=== PATIENT | male | born 1960 | race Caucasian/White ===

== ENCOUNTER 2016-12-27 09:24 | Inpatient (IN) | payer OTHER ==
[2016-11-30 09:51] VITALS: BMI 28.0
--- NOTE | 2016-11-30 10:22 | PAT Medication Instructions ---
Service Date Nov 30, 2016. Current Home Medication List Alprazolam (Xanax), 1 MG PO Q6H PRN for Anxiety/Agitation Amlodipine (Norvasc), 5 MG PO QAM Aripiprazole (Abilify *), 30 MG PO BID Ascorbic Acid (Vitamin C), 500 MG PO QAM Baclofen (Lioresal), 5 MG PO TID PRN for Muscle Spasms Divalproex Sodium (Divalproex Sodium ER), 500 MG PO QAM Divalproex Sodium Extended Rel (Depakote Extended Rel *), 1,000 MG PO HS Gabapentin (Neurontin), 800 MG PO 5XD Hydrocodone/Acetaminophen 5MG/325MG ([place] 5MG/325MG), 1 TABLET PO Q4-6H PRN for Pain Lisinopril/Hctz (Zestoretic 20MG/25MG), 1 TAB PO QAM Ranitidine Hcl (Zantac), 150 MG PO BID Zolpidem Tartrate (Ambien *), 10 MG PO HS Medication Instructions For Your Scheduled Surgery - Hold the following medications the morning of surgery: Ranitidine Hcl (Zantac), 150 MG PO BID Lisinopril/Hctz (Zestoretic 20MG/25MG), 1 TAB PO QAM Baclofen (Lioresal), 5 MG PO TID PRN for Muscle Spasms Ascorbic Acid (Vitamin C), 500 MG PO QAM - Take the following medications the morning of surgery with a sip of water: Gabapentin (Neurontin), 800 MG PO 5XD Divalproex Sodium (Divalproex Sodium ER), 500 MG PO QAM Alprazolam (Xanax), 1 MG PO Q6H PRN for Anxiety/Agitation Amlodipine (Norvasc), 5 MG PO QAM Aripiprazole (Abilify *), 30 MG PO BID Hydrocodone/Acetaminophen 5MG/325MG ([place] 5MG/325MG), 1 TABLET PO Q4-6H PRN for Pain (okay to take up to 4 hours prior to surgery if needed) - Take the following medications as scheduled the night before surgery: Zolpidem Tartrate (Ambien *), 10 MG PO HS Ranitidine Hcl (Zantac), 150 MG PO BID Gabapentin (Neurontin), 800 MG PO 5XD Divalproex Sodium Extended Rel (Depakote Extended Rel *), 1,000 MG PO HS Aripiprazole (Abilify *), 30 MG PO BID Alprazolam (Xanax), 1 MG PO Q6H PRN for Anxiety/Agitation Hydrocodone/Acetaminophen 5MG/325MG ([place] 5MG/325MG), 1 TABLET PO Q4-6H PRN for Pain If you have any questions please call us at [phone] (Valerie Gibbs PA-C) or [phone] or [phone]
[2016-11-30 10:53] LABS: URINE APPEARANCE CLEAR (CLEAR); URINE COLOR DK YELLOW; URINE EPITHELIAL CELL AUTO 0-5 /lpf (0-5); URINE NITRITE NEG (NEG); URINE PH 5.5 (4.5-7.5); URINE SPECIFIC GRAVITY 1.022 (1.000-1.030); UROBILINOGEN NEG (NEG)
[2016-11-30 11:16] LABS: MANUAL MICROSCOPIC REQUIRED? NO; REVIEW REQ? NO; URINE BILIRUBIN NEG (NEG)
--- NOTE | 2016-12-26 13:04 | HISTORY & PHYSICAL EXAMINATION ---
DATE OF ADMISSION: 12/27/2016 HISTORY OF PRESENT ILLNESS: The patient presents to our office with complaint of back pain down the right leg. He reports his right leg is weak and sometimes jalil on him. He is having a difficult time with ambulation. He has trialed pain management injections with Dr. Guerrero which were not long lasting. Denies bowel or bladder dysfunction. He reports walking exacerbates his symptoms as well as lying down. He is most comfortable in a seated position. He is not taking anything for pain control. PAST MEDICAL HISTORY: The patient's medical history is significant for hypertension, anxiety. PAST SURGICAL HISTORY: Significant for prior lumbar surgery. MEDICATIONS: None listed. ALLERGIES: None listed. FAMILY HISTORY: Noncontributory. REVIEW OF SYSTEMS: Significant for back and right leg pain. PHYSICAL EXAMINATION: VITAL SIGNS: 5 foot 11, 210 pounds. HEAD, EYES, EARS, NOSE, AND THROAT: Speech appropriate. CARDIOPULMONARY: No gross abnormalities. ABDOMEN: Soft, nontender. GENITOURINARY: Deferred. NEUROLOGIC: Cranial nerves II-XII grossly intact. MUSCULOSKELETAL: The patient moves slowly around the room favoring the right side. He has a positive tension sign on the right. Strength is intact bilateral lower extremities. ASSESSMENT: Significant facet hypertrophy and severe lateral recess stenosis and foraminal stenosis of L2-3, evidence of prior decompression and fusion L3-S1. PLAN: At this point in time, he has failed conservative therapy and may consider surgical intervention. This would require lumbar decompression with instrumented fusion of L2-L3, removal of hardware L3-4. We may have to continue fusion down to the L2 through 4 levels. Risks, benefits, pros and alternatives were outlined in detail. He elected to proceed with the above-mentioned surgical intervention.
[~2016-12-27] VITALS: Ht 180.3 cm; Wt 93.9 kg
--- NOTE | 2016-12-27 07:31 | History & Physical Bridge Note ---
H&P Re-Evaluation Bridge Note: I have examined the patient, reviewed the History & Physical and in the interval since the performance of the History & Physical I have noted the following changes of clinical significance: No changes noted
[~2016-12-27 09:24] MED LIST: ABL15 PO; ALPR1TAB3 PO; AMB10 PO; AMLO-110 PO; ASCO1CAP3 PO; BACL10TA PO; CEFAZOLIN 2000 MG/60 ML D5W IV SCH; DPKSR500 PO; GABA800T PO; HYDR-5688 PO; LACTATED RINGER'S 1000ML 1,000 ML IV SCH; LISI-788 PO; RANI150T3 PO
[2016-12-27 09:50] VITALS: BP_SYST 156; BP_SYST 162; BP_DIAS 105; BP_DIAS 113; PULSE 101; TEMP 36.5; O2SAT 99; Ht 180.3 cm; Wt 93.9 kg
[2016-12-27] MEDS ORDERED: HYDROmorphone INJ 2 MG/ML SYR/VIAL ONE (11:32)
[2016-12-27] MEDS ORDERED: MIDAZOLAM HCL 1 MG/ML 2ML VIAL ONE (11:32)
[2016-12-27] MEDS ORDERED: FENTANYL CITRATE INJ 50 MCG/1 ML 2 ML VIAL ONE (11:32)
[2016-12-27] MEDS ORDERED: LACTATED RINGER'S 1000ML 1,000 ML IV PRN (12:15)
[2016-12-27] MEDS ORDERED: ONDANSETRON INJ 2 MG/ML 2 ML VIAL IV PRN ×2 (12:15→15:30)
[2016-12-27] MEDS ORDERED: BUPIVACAINE/EPINEPHRINE 0.5% MPF 1:200,000 30 ML VIAL ONE (13:17)
[2016-12-27] MEDS ORDERED: BACITRACIN 50000 UNIT VIAL ONE (13:17)
[2016-12-27] MEDS ORDERED: SODIUM CHLORIDE 0.9% PF 50 ML VIAL ONE (13:17)
[2016-12-27] MEDS ORDERED: DEXAMETHASONE SOD INJ 4 MG/ML VIAL ONE (13:55)
[2016-12-27] MEDS ORDERED: LABETALOL HCL IV 5 MG/ML 20ML ONE ×2 (13:55→16:35)
[2016-12-27] MEDS ORDERED: NEOSTIGMINE METHYLSULFATE 1 MG/ML 10ML VIAL ONE (13:55)
[2016-12-27] MEDS ORDERED: GLYCOPYRROLATE INJ 0.2 MG/ML VIAL ONE (13:55)
[2016-12-27] MEDS ORDERED: ONDANSETRON INJ 2 MG/ML 2 ML VIAL ONE (13:55)
[2016-12-27] MEDS ORDERED: LIDOCAINE HCL 2% 2 ML VIAL (20MG/ML) ONE (13:55)
[2016-12-27] MEDS ORDERED: LARYING-O-JET KIT (LTA) EXT ONE ×2 (13:55)
[2016-12-27] MEDS ORDERED: ROCURONIUM BROMIDE 10 MG/ML 5 ML VIAL ONE ×2 (13:55→14:06)
[2016-12-27] MEDS ORDERED: PROPOFOL IV EMULSION 10 MG/ML 20 ML VIAL IV ONE (13:55)
[2016-12-27] MEDS ORDERED: SODIUM CHLORIDE 0.9% 1000ML 1,000 ML IV SCH (15:17)
--- NOTE | 2016-12-27 15:17 | [facility] Post Operative Brief Note ---
Immediate Operative Summary Operative Date Dec 27, 2016. Pre-Operative Diagnosis Significant facet hypertrophy and severe lateral recess stenosis and foraminal stenosis of L2-3, evidence of prior decompression and fusion L3-S1. Post-Operative Diagnosis Significant facet hypertrophy and severe lateral recess stenosis and foraminal stenosis of L2-3, evidence of prior decompression and fusion L3-S1. Procedure(s) Performed tlif Surgeon Dr. Harjinder Duran Selector Packer Surgeon(s) Kristan Dalton PA-C Estimated Blood Loss 500 Findings stenosis Specimens Specimen A. Explanted lumbar hardware
[2016-12-27] MEDS ORDERED: FLOSEAL HEMOSTATIC MATRIX 10ML TOP ONE (15:18)
[2016-12-27] MEDS ORDERED: DO NOT ADMINISTER PNEUMOCOCCAL VACCINE PRN ×2 (15:30)
[2016-12-27] MEDS ORDERED: ALUMINUM/MAGNESIUM SUSP 30 ML UDC PO PRN (15:30)
[2016-12-27] MEDS ORDERED: METOCLOPRAMIDE HCL INJ 5 MG/ML 2 ML VIAL IV PRN (15:30)
[2016-12-27] MEDS ORDERED: ACETAMINOPHEN IV 100 ML IV PRN (15:30)
[2016-12-27] MEDS ORDERED: hydrOXYzine HCL 25 MG TAB PO PRN (15:30)
[2016-12-27] MEDS ORDERED: ACETAMINOPHEN 500 MG TAB PO PRN (15:30)
[2016-12-27] MEDS ORDERED: PROMETHAZINE HCL INJ 12.5 MG in SODIUM CHLORIDE 0.9% 50ML 50 ML IV PRN (15:30)
[2016-12-27] MEDS ORDERED: MAGNESIUM HYDROXIDE SUSP 30 ML UDC PO PRN (15:30)
[2016-12-27] MEDS ORDERED: LORAZEPAM 0.5 MG TAB PO PRN (15:30)
[2016-12-27] MEDS ORDERED: NALOXONE HCL 0.4 MG/1 ML VIAL/CARP IV PRN ×2 (15:30)
[2016-12-27] MEDS ORDERED: LORAZEPAM INJ 0.5 MG in SYRINGE 0 ML IV PRN (15:30)
[2016-12-27] MEDS ORDERED: BISACODYL 10 MG SUPP PR PRN (15:30)
[2016-12-27] MEDS ORDERED: SOD PHOSPHATE/SOD BIPHOSPHATE ENEMA 132 ML BTL PR PRN (15:30)
[2016-12-27] MEDS ORDERED: DO NOT ADMINISTER FLU VACCINE PRN ×3 (15:30)
--- NOTE | 2016-12-27 15:39 | OPERATIVE REPORT ---
DATE OF OPERATION: 12/27/2016 PREOPERATIVE DIAGNOSES: Spinal stenosis and spondylolisthesis, L2-L3. POSTOPERATIVE DIAGNOSES: Same. PROCEDURES PERFORMED: 1. Removal of posterior instrumentation, L3-L4. 2. Exploration of fusion, L3-L4. 3. Lumbar decompression, medial facetectomies, and foraminotomies, L1-L2 and L2-L3. 4. Posterior spinal fusion, L2-L3. 5. Placement of posterior instrumentation using Orthros rods and screws, L2-L3. 6. Interbody fusion, L2-L3. 7. Placement of PEEK cage 12 x 26 mm at L2-L3. 8. Placement of locally harvested morselized autograft in the posterior gutters. 9. Placement of Infuse collagen sponge combined with Mastergraft in the posterior lateral gutters and Minerva bone grafting in the interbody space. SURGEON: Dr. Harjinder Duran. ROUGH RIB GRADER: Kristan Beasley PA-C. Due to the complex nature of the procedure, the entire surgery was performed with the hotel assistant manager of [employer] [place]. The assistant teaching professor, under direct supervision, was involved in the actual performance of all aspects of the surgical procedure including hemostasis, tissue retraction and incision, instrument management, patient positioning, and wound closure. ANESTHESIA: General. DISPOSITION: The patient awakened and taken to PACU in stable condition. HISTORY OF PATIENT'S PROBLEMS: This is a 56-year-old male who presents with above-mentioned diagnoses. After failing an extensive course of nonoperative care, he elected to undergo the above-mentioned procedure. Risks, benefits, pros, cons, and alternatives were outlined in detail preoperatively. DESCRIPTION OF PROCEDURE: The patient was met with preoperatively, case discussed and all questions were addressed. At that point, the patient was taken back to operative suite and after undergoing successful general intubation by the department of anesthesia, he was placed in prone position on Rian table atop Donald frame. All bony prominences were well padded and the eyes were inspected to ensure there was no external pressure placed upon them. At this point, the lumbar spine was prepped and draped in the normal sterile fashion. Sharp dissection with the assistance of Bovie cautery performed down to and exposing the lamina and transverse processes of L2, L3, and instrumentation at L3-L4 level bilaterally. I then proceeded with hardware bilaterally at L3 and L4, exploring the fusion mass noting it to be intact. I then performed a complete laminectomy of L2, partial laminectomy of L1 addressing severe lateral recess and foraminal stenosis. Pedicle screws were then placed in L2-L3 bilaterally with assistance of fluoroscopy and the appropriately sized waleska provisionally placed. Through a transforaminal approach on the left, a complete diskectomy of L2-L3 was performed, endplates curetted to subcortical bleeding bone and a 12 x 26 mm PEEK cage filled with Minerva bone grafting tapped into position. The rods were then locked into final position bilaterally and transverse processes of L2-L3 burred to subcortical bleeding bone. Infuse collagen sponge combined with Mastergraft and locally harvested morselized autograft was placed in the posterior gutters. A 7 flat ELA drain was inserted. Incision was closed with 1-0 Vicryl in the fascia, 2-0 Vicryl subcutaneously, and 4-0 Monocryl for final skin closure. Steri-Strips and sterile dressing were placed. The patient was awakened and taken to PACU in stable condition. I attest to the content of the Intraoperative Record and any orders documented therein. Any exceptio ns are noted below.
--- NOTE | 2016-12-27 15:44 | DIAGNOSTIC IMAGING REPORT ---
Lumbar spine LUMBAR SPINE 2 OR 3 VIEW CLINICAL HISTORY: L3-4 REMOVE HARDWARE/L2-4 DECOMPRESSION/FUSION/INTERBODY TECHNIQUE: Image intensifier COMPARISON STUDY: None FINDINGS: Image intensifier thyroid is used for lumbar laminectomy and fusion-type changes. This includes hardware removal. IMPRESSION: Image intensifier usage for lumbar laminectomy, fusion, and hardware removal. Electronically signed by: Cameron Rodrigues M.D. 12/27/2016 3:42 PM Dictated Date/Time: 12/27/2016 3:42 PM
[2016-12-27] MEDS: FENTANYL CITRATE INJ 50 MCG/1 ML 2 ML VIAL IV PRN ×2 (15:50→15:55)
[2016-12-27] MEDS: HYDROmorphone HCL 0.5MG/ML 50 ML CASSETTE IV PRN ×3 (15:58→22:52)
[2016-12-27] MEDS: MoRPHine SULFATE 10 MG/ML CARP/VIAL IV PRN ×5 (16:04→16:20)
[2016-12-27] MEDS ORDERED: LABETALOL HCL IV 5 MG/ML 20ML IV STA (17:03)
--- NOTE | 2016-12-27 17:06 | Anesthesiology Progress Note ---
Anesthesia Post Op Note Date & Time Dec 27, 2016 at 17:07 Vital Signs Pain Intensity: 4 Vital Signs Past 12 Hours Date Time Temp Pulse Resp B/P Pulse Ox O2 Delivery O2 Flow Rate FiO2 12/27/16 16:58 134/97 12/27/16 16:58 36.7 69 18 134/97 98 Nasal Cannula 4 12/27/16 16:55 69 17 137/93 98 12/27/16 16:55 68 17 12/27/16 16:53 137/100 12/27/16 16:50 64 13 95 12/27/16 16:50 65 13 12/27/16 16:49 70 21 12/27/16 16:49 69 21 97 12/27/16 16:48 138/94 12/27/16 16:44 72 12 12/27/16 16:44 72 12 98 12/27/16 16:43 126/98 12/27/16 16:42 133/93 12/27/16 16:39 72 18 98 12/27/16 16:39 71 18 12/27/16 16:38 138/93 12/27/16 16:34 71 20 95 12/27/16 16:34 72 20 12/27/16 16:33 138/101 12/27/16 16:29 70 18 12/27/16 16:29 71 18 98 12/27/16 16:28 156/101 12/27/16 16:24 72 20 99 12/27/16 16:24 74 20 12/27/16 16:23 141/92 12/27/16 16:19 74 7 12/27/16 16:19 74 7 98 12/27/16 16:18 148/102 12/27/16 16:14 75 15 98 12/27/16 16:14 75 15 12/27/16 16:13 140/99 12/27/16 16:12 72 16 98 12/27/16 16:12 73 16 12/27/16 16:08 147/100 12/27/16 16:07 74 20 12/27/16 16:07 73 20 99 12/27/16 16:03 149/103 12/27/16 16:02 74 17 100 12/27/16 16:02 75 17 12/27/16 15:58 136/103 12/27/16 15:57 73 9 99 12/27/16 15:57 74 9 12/27/16 15:53 147/103 12/27/16 15:52 76 20 12/27/16 15:52 76 20 100 12/27/16 15:48 151/113 12/27/16 15:47 74 17 100 12/27/16 15:47 75 17 12/27/16 15:46 159/109 12/27/16 15:42 36.6 75 16 159/109 100 Mask 10 12/27/16 09:50 36.5 101 20 162/105 99 Room Air 156/113 Notes Mental Status: alert / awake / arousable, participated in evaluation Pt Amnestic to Procedure: Yes Nausea / Vomiting: adequately controlled Pain: adequately controlled Airway Patency, RR, SpO2: stable & adequate BP & HR: stable & adequate Hydration State: stable & adequate Anesthetic Complications: no major complications apparent
[2016-12-27 18:02] VITALS: BP 123/82; PULSE 63; TEMP 36.5; O2SAT 100
[2016-12-27 18:30] VITALS: BP 119/80; PULSE 74; TEMP 36.3; O2SAT 97
[2016-12-27] MEDS: LACTATED RINGER'S 1000ML 1,000 ML IV SCH (18:53)
[2016-12-27 19:30] VITALS: BP 118/78; PULSE 61; TEMP 36.6; O2SAT 98
[2016-12-27] MEDS: GABAPENTIN 800 MG TAB PO SCH (19:55)
[2016-12-27 20:30] VITALS: BP 129/86; PULSE 72; TEMP 36.4; O2SAT 99
[2016-12-27] MEDS ORDERED: INFLUENZA ADMINISTRATION CHARGE ONE (21:15)
[2016-12-27] MEDS ORDERED: INFLUENZA VIRUS QUAD VACCINE 0.5 ML SYR IM. ONE (21:15)
[2016-12-27] MEDS: RANITIDINE HCL 150 MG TAB PO SCH (21:19)
[2016-12-27] MEDS: ZOLPIDEM TARTRATE 10 MG TAB PO SCH (21:19)
[2016-12-27] MEDS: DOCUSATE SODIUM/SENNA 50/8.6MG TAB PO SCH (21:19)
[2016-12-27] MEDS: DIVALPROEX 500 MG EXTENDED RELEASE TAB PO SCH (21:20)
[2016-12-27] MEDS: ARIPIprazole TAB 15 MG TAB PO SCH (21:20)
[2016-12-27] MEDS: DEXAMETHASONE INJ 6 MG in SYRINGE 0 ML IV SCH (21:39)
[2016-12-27] MEDS: CEFAZOLIN IV 2,000 MG in DEXTROSE 5% 50ML 50 ML IV SCH (21:48)
[2016-12-27 23:35] VITALS: BP 116/76; PULSE 68; TEMP 36.4; O2SAT 95
[2016-12-28] MEDS: LACTATED RINGER'S 1000ML 1,000 ML IV SCH ×2 (00:04→06:21)
[2016-12-28 03:57] VITALS: BP 125/86; PULSE 83; TEMP 36.5; O2SAT 95
[2016-12-28] MEDS ORDERED: DC PCA ONE (06:00)
[2016-12-28] MEDS ORDERED: HYDROmorphone INJ 1 MG/ML SYR IV PRN (06:00)
[2016-12-28 06:14] LABS: BASO % 0.1 %; BASO ABS # 0.01 K/uL (0-0.2); COMPLETE YES; HEMATOCRIT 39.9 % (42-52); IG% 0.4 %; LYMPH % 6.6 %; LYMPH ABS # 0.89 K/uL (1.2-3.4); MEAN CELL VOLUME 97.6 fL (80-100); MEAN CORPUSCULAR HEMOGLOBIN 33.7 pg (25-34); MEAN CORPUSCULAR HGB CONC 34.6 g/dl (32-36); MONO % 8.2 %; NEUT % 84.7 %; PLATELET COUNT 197 K/uL (130-400); RED BLOOD COUNT 4.09 M/uL (4.7-6.1); WHITE BLOOD COUNT 13.43 K/uL (4.8-10.8)
[2016-12-28] MEDS: DEXAMETHASONE INJ 6 MG in SYRINGE 0 ML IV SCH ×2 (06:20→12:59)
[2016-12-28] MEDS: CEFAZOLIN IV 2,000 MG in DEXTROSE 5% 50ML 50 ML IV SCH (06:20)
[2016-12-28] MEDS: GABAPENTIN 800 MG TAB PO SCH ×5 (06:21→18:41)
[2016-12-28 06:39] LABS: CALCIUM 8.7 mg/dl (8.5-10.1); CREATININE 0.99 mg/dl (0.60-1.40); POTASSIUM 4.4 mmol/L (3.5-5.1)
[2016-12-28 07:05] VITALS: BP 123/89; PULSE 91; TEMP 36.6; O2SAT 94
[2016-12-28] MEDS ORDERED: RXC5 PO (08:34)
--- NOTE | 2016-12-28 08:35 | Discharge Instructions ---
Discharge Instructions Admission Reason for Admission: Lumbar Spinal Stenosis Discharge Discharge Diagnosis / Problem: stenosis Discharge Goals Goal(s): Improve function Activity Recommendations Activity Limitations: per Instructions/Follow-up section . Instructions / Follow-Up Instructions / Follow-Up ACTIVITY RECOMMENDATIONS: SELF CARE INSTRUCTIONS AFTER CERVICAL FUSIONS 1. No smoking. Smoking drastically decreases the chance of a solid fusion. 2. No bending, lifting more than 5 pounds, or twisting (roll like a log when turning in bed). 3. You may shower 3 days after surgery. Thoroughly dry wound. Do not soak in the tub. 4. Cervical collar: Must be worn at all times including sleeping. You may remove the brace only to bath, eat and if you are sitting in a recliner. 5. Please walk as much as you can for exercise. Gradually increase the distance that you walk as your endurance increases. SPECIAL CARE INSTRUCTIONS: VERY IMPORTANT TO READ AND REVIEW A. Do not take any anti-inflammatory medications (i.e. Indocin, Advil, Aspirin, Naprosyn, Aleve, Motrin, etc.) as these may inhibit the chance of a solid fusion. Tylenol is okay to take. B. Your surgical incision has been closed with a cosmetic suture under the skin that will dissolve in about 6 weeks. In 14 days, you can use a pair of clean scissors and cut the suture that is left outside of the skin at the ends of your incision. C. Complications are uncommon, but please contact us if you have any signs or symptoms of: 1. wound infection (fever higher than 102.5 degrees F, redness, separation of wound, drainage, or increasing pain from the incision) 2. blood clots in legs (pain, swelling, redness and warmth in legs) 3. urinary tract infection (fever higher than 102.5 degrees, burning upon urination or increased frequency of urination) 4. nerve problems (inability to walk on your toes or heels, numbness, loss of bowel or bladder control) 5. any other symptoms that concern you. D. Please call the office at if you have any concerns or questions about your operation or recovery. MANAGING PAIN AFTER SPINAL SURGERY 1. Narcotic medication is intended for short-term use and will be provided for surgical pain. Surgical pain usually lasts for a period of 4-6 weeks. Narcotic medication includes Percocet, Vicodin, Darvocet, Tylenol #3 or Lortab. 2. Longer-term pain is more appropriately treated with non-narcotic medication such as Tylenol ES. 3. Muscle spasm is not appropriately treated with narcotics. Muscle relaxers such as Soma, Flexeril or Skelaxin can be used along with Tylenol ES. 4. Remember that we all live with some "aches and pains". This is not unusual or uncommon after an injury or as we get older. 5. We will provide appropriate medication within the normal guidelines of their prescribed use. We will also be very cautious and aware of potential abuse and extended duration of patients' medication needs. 6. Please allow 2-3 days to process refills. Prescriptions will not be mailed but must be picked up at the office. FOLLOW UP VISIT: Keep your scheduled follow-up appointment. Any questions, please call the office at . Current Hospital Diet Patient's current hospital diet: Regular Diet Discharge Diet Recommended Diet: Regular Diet Procedures Procedures Performed: L2-L3 Lumbar laminectomy, decompression, pedicle screw fixation, placement of interbody device at L2-L3, allograft, bone morphenogenetic protein, hardware removal L3-L4 Pending Studies Studies pending at discharge: no Medical Emergencies . Who to Call and When: Medical Emergencies: If at any time you feel your situation is an emergency, please call 911 immediately. . Non-Emergent Contact Non-Emergency issues call your: Primary Care Provider . "Provider Documentation" section prepared by Harjinder Duran. VTE Core Measure Inpt VTE Proph given/why not?: Kunal Brown, SCD's
[2016-12-28] MEDS: LISINOPRIL/HCTZ 20/25MG TAB PO SCH (08:42)
[2016-12-28] MEDS: OXYCODONE HCL IR 5 MG TAB (IMMEDIATE RELEASE) PO PRN ×4 (08:42→21:46)
[2016-12-28] MEDS: ARIPIprazole TAB 15 MG TAB PO SCH ×2 (08:42→21:20)
[2016-12-28] MEDS: RANITIDINE HCL 150 MG TAB PO SCH ×2 (08:42→21:21)
[2016-12-28] MEDS: DIVALPROEX 500 MG EXTENDED RELEASE TAB PO SCH ×2 (08:43→21:20)
[2016-12-28] MEDS: AMLODIPINE BESYLATE 5 MG TAB PO SCH (08:43)
--- NOTE | 2016-12-28 08:48 | PROGRESS NOTE ---
DATE: 12/28/2016 Postop day 1. Back pain controlled. Leg pain markedly improved. Vital signs stable. T-max 36.6. ELA drained 70 mL. Hematocrit 39.9. PHYSICAL EXAMINATION: The patient is in chair at bedside. Has good strength to testing. Appears comfortable. ASSESSMENT: Status post lumbar decompression and fusion. PLAN: At this time, will initiate physical therapy, advance his bowel regimen and anticipate home Sunday.
[2016-12-28 11:05] VITALS: BP 106/72; PULSE 72; TEMP 36.7; O2SAT 94
[2016-12-28] MEDS ORDERED: NURSING VERBAL MED ORDER ONE (13:00)
[2016-12-28 14:52] VITALS: BP 97/64; PULSE 78; TEMP 36.9; O2SAT 95
[2016-12-28] MEDS: ALPRAZOLAM 0.5 MG TAB PO PRN (15:26)
[2016-12-28] MEDS: ZOLPIDEM TARTRATE 10 MG TAB PO SCH (21:19)
[2016-12-28] MEDS: DOCUSATE SODIUM/SENNA 50/8.6MG TAB PO SCH (21:21)
[2016-12-28 23:23] VITALS: BP 91/61; PULSE 61; TEMP 37; O2SAT 95
[2016-12-29] MEDS: POLYETHYLENE (MIRALAX) 17 GM PACK PO SCH ×2 (06:26→12:54)
[2016-12-29] MEDS: ALPRAZOLAM 0.5 MG TAB PO PRN (06:27)
[2016-12-29] MEDS: OXYCODONE HCL IR 5 MG TAB (IMMEDIATE RELEASE) PO PRN ×2 (06:27→14:14)
[2016-12-29] MEDS: GABAPENTIN 800 MG TAB PO SCH ×4 (06:36→16:21)
[2016-12-29 06:43] VITALS: BP 102/57; PULSE 69; TEMP 36.5; O2SAT 98
[2016-12-29] MEDS: AMLODIPINE BESYLATE 5 MG TAB PO SCH (08:56)
[2016-12-29] MEDS: DIVALPROEX 500 MG EXTENDED RELEASE TAB PO SCH (08:56)
[2016-12-29] MEDS: RANITIDINE HCL 150 MG TAB PO SCH (08:56)
[2016-12-29] MEDS: ARIPIprazole TAB 15 MG TAB PO SCH (08:56)
[2016-12-29] MEDS: LISINOPRIL/HCTZ 20/25MG TAB PO SCH (08:56)
[2016-12-29 09:08] VITALS: O2SAT 97
[2016-12-29 09:15] VITALS: BP 110/55; PULSE 70; TEMP 36.4; O2SAT 97
--- NOTE | 2016-12-29 10:49 | DISCHARGE SUMMARY ---
PRINCIPAL DIAGNOSIS: Spinal stenosis. HOSPITAL COURSE FOLLOWS: On December 27 the patient underwent lumbar decompression and fusion, tolerated this well and taken to the orthopedic floor postoperatively. Postop day #1, he was up and ambulatory, progressed to postop day #2. Progressing appropriately, ELA drain decreasing well. Subsequently discharged home. Discharge orders and instructions found on the chart for further review.
[2016-12-29 11:59] VITALS: BP 115/60; PULSE 73; TEMP 36.4; O2SAT 99
[2016-12-29 14:52] VITALS: BP 99/62; PULSE 71; TEMP 36.4; O2SAT 98
[2016-12-29 15:18] VITALS: BP 99/62; PULSE 71; TEMP 36.4; O2SAT 98
[2017-07-12] MEDS ORDERED: ONDA8TAB6 PO (10:32)
[2017-07-12] MEDS ORDERED: MELO7.5T5 PO (10:32)
[2017-07-12] MEDS ORDERED: ACET-1256 PO (10:32)
[2017-07-12] MEDS ORDERED: GABA1CAP5 PO (10:32)
[2017-07-12] MEDS ORDERED: CYM/30 PO (10:32)
[2017-07-12] MEDS ORDERED: CYCL10TA6 PO (10:32)
[2017-07-12] MEDS ORDERED: CELE100C PO (10:32)
[2017-07-12] MEDS ORDERED: NRN600 PO (10:32)
== END 2016-12-29 17:30 | disposition home health service (06) | DRG 460 ==
LOC: ENRESERVTM → ENRESERVDT → C.ACU 09:24 → C.3E 12:50
PROVIDERS: ADMIT Orthopaedic Surgery Orthopaedic Surgery of the Spine; ATTEND Orthopaedic Surgery Orthopaedic Surgery of the Spine
PROC: 0SG00AJ Fusion of Lumbar Vertebral Joint with Interbody Fusion Device, Posterior Approach, Anterior Column, Open Approach (ICD-10-PCS; principal; 2016-12-27 12:00)
PROC: 0SP004Z Removal of Internal Fixation Device from Lumbar Vertebral Joint, Open Approach (ICD-10-PCS; principal; 2016-12-27 12:00)
PROC: 01NB0ZZ Release Lumbar Nerve, Open Approach (ICD-10-PCS; principal; 2016-12-27 12:00)
PROC: 0ST20ZZ Resection of Lumbar Vertebral Disc, Open Approach (ICD-10-PCS; principal; 2016-12-27 12:00)
PROC: 3E0U0GB Introduction of Recombinant Bone Morphogenetic Protein into Joints, Open Approach (ICD-10-PCS; principal; 2016-12-27 12:00)
PROC: 0SG0071 Fusion of Lumbar Vertebral Joint with Autologous Tissue Substitute, Posterior Approach, Posterior Column, Open Approach (ICD-10-PCS; principal; 2016-12-27 12:00)
DX: M48.06 Spinal stenosis, lumbar region (principal); M43.16 Spondylolisthesis, lumbar region; M53.86 Other specified dorsopathies, lumbar region; I10 Essential (primary) hypertension; R56.9 Unspecified convulsions; K21.9 Gastro-esophageal reflux disease without esophagitis; G62.9 Polyneuropathy, unspecified; F41.9 Anxiety disorder, unspecified; F32.9 Major depressive disorder, single episode, unspecified; F43.10 Post-traumatic stress disorder, unspecified; Z98.1 Arthrodesis status; Z96.612 Presence of left artificial shoulder joint; Z86.19 Personal history of other infectious and parasitic diseases; Z79.891 Long term (current) use of opiate analgesic; Z79.899 Other long term (current) drug therapy

== ENCOUNTER 2017-01-01 19:43 | Inpatient (IN) | payer OTHER ==
[~2017-01-01] VITALS: Ht 180.3 cm; Wt 95.2 kg
[~2017-01-01 19:43] MED LIST changes: -BACL10TA PO; -CEFAZOLIN 2000 MG/60 ML D5W IV SCH; -LACTATED RINGER'S 1000ML 1,000 ML IV SCH; +RXC5 PO
[2017-01-01 21:25] VITALS: BP 150/99; PULSE 73; TEMP 36.9; Ht 180.3 cm; Wt 95.2 kg
[2017-01-01] MEDS ORDERED: NURSING VERBAL MED ORDER ONE (21:30)
[2017-01-01] MEDS ORDERED: NALOXONE HCL 0.4 MG/1 ML VIAL/CARP IV PRN (21:45)
[2017-01-01] MEDS: SODIUM CHLORIDE 0.9% 1000ML 1,000 ML IV SCH (21:45)
[2017-01-01] MEDS ORDERED: PROMETHAZINE HCL INJ 12.5 MG in SODIUM CHLORIDE 0.9% 50ML 50 ML IV PRN (22:00)
[2017-01-01] MEDS ORDERED: LACTATED RINGER'S 1000ML 1,000 ML IV SCH (22:00)
[2017-01-01] MEDS: HYDROmorphone HCL 0.5MG/ML 50 ML CASSETTE IV PRN (22:36)
[2017-01-01] MEDS: LACTATED RINGER'S 1000ML 1,000 ML IV SCH (23:35)
[2017-01-01 23:55] VITALS: BP 117/75; PULSE 71; TEMP 36.6; O2SAT 96
[2017-01-02 04:30] VITALS: BP 130/87; PULSE 63; TEMP 36.8; O2SAT 99
[2017-01-02] MEDS: HYDROmorphone HCL 0.5MG/ML 50 ML CASSETTE IV PRN ×4 (06:56→21:20)
[2017-01-02 07:23] VITALS: BP 159/98; PULSE 79; TEMP 36.6; O2SAT 99
[2017-01-02] MEDS ORDERED: ALPRAZOLAM 0.5 MG TAB PO PRN (08:30)
--- NOTE | 2017-01-02 08:58 | HISTORY & PHYSICAL EXAMINATION ---
DATE OF ADMISSION: 01/01/2017 HISTORY OF PRESENT ILLNESS: Mr. Phan is status post on 12/27/[address] Duran removal of instrumentation L3-4, lumbar decompression L1-2, L2-L3, instrumented fusion L2-L3. He presented to the [place] [facility] last evening secondary to increased back pain as well as leg pain. He was transferred from [facility] to [facility] as a direct admit for possible surgical intervention. The patient states at home he has been taking oxycodone for pain control. He has been using the assistance of a walker when ambulatory. He notes increased back pain as well as leg pain. Denies bowel or bladder changes. Denies fevers or chills. PAST MEDICAL HISTORY: The patient's medical history is significant for anemia, anxiety, elevated liver enzymes, hypertension, neuropathy, seizures and substance abuse. PAST SURGICAL HISTORY: Significant for ankle surgery, back surgery, total shoulder replacement. MEDICATIONS AT HOME: Include oxycodone 5 mg p.r.n., Neurontin 600 mg 4 times a day, Neurontin 800 mg 5 times a day, hydrocodone 5/325 q. 6 hours p.r.n., Zoloft 100 mg daily, lisinopril/hydrochlorothiazide 20/25 daily, baclofen 20 mg half a tablet t.i.d., Zantac 150 mg a day, Norvasc 5 mg a day, aripiprazole 30 mg half a tablet in the morning and half tablet before bedtime, sodium ER 500 mg 1 tab in the morning and 2 at bedtime, Xanax 1 mg twice a day as needed, vitamin C, Ambien 10 mg at bedtime p.r.n. ALLERGIES: None listed. SOCIAL HISTORY: He is single. Denies smoking, Alcohol use is social. Drug use is occasional. Employment is disability. PHYSICAL EXAMINATION: VITAL SIGNS: He is afebrile. Temp is 36.6 this morning. HEAD, EYES, EARS, NOSE, AND THROAT: Speech appropriate. CARDIOPULMONARY: No gross abnormalities. ABDOMEN: Soft, nontender. GENITOURINARY: Deferred. NEUROLOGIC: Cranial nerves II-XII grossly intact. MUSCULOSKELETAL: He is sitting on the edge of the bed in no obvious distress. His lumbar incision has significant ecchymosis as well as edema. No purulent drainage. His lower extremities he is neurovascularly intact. No ankle clonus. Calves are soft, nontender. ASSESSMENT: Postoperative hematoma versus seroma creating severe stenosis centrally L1 through L3. This is per MRI report from [place] last evening. PLAN: At this point in time, the patient is on IV DISTRICT ASSOCIATE JUDGE for pain control. Light activity today. DVT prophylaxis in the form of TEDs and SCDs. We will make him n.p.o. after midnight for possible I\T\D lumbar spine. ANDREAD
[2017-01-02] MEDS: LACTATED RINGER'S 1000ML 1,000 ML IV SCH ×2 (09:14→18:37)
[2017-01-02] MEDS: GABAPENTIN 800 MG TAB PO SCH ×3 (10:38→21:25)
[2017-01-02] MEDS: LISINOPRIL/HCTZ 20/25MG TAB PO SCH (10:38)
[2017-01-02] MEDS: ARIPIprazole TAB 15 MG TAB PO SCH ×2 (10:39→21:25)
[2017-01-02] MEDS: DIVALPROEX 500 MG EXTENDED RELEASE TAB PO SCH ×2 (10:39→21:24)
[2017-01-02] MEDS: RANITIDINE HCL 150 MG TAB PO SCH ×2 (10:39→21:24)
[2017-01-02] MEDS: AMLODIPINE BESYLATE 5 MG TAB PO SCH (10:39)
[2017-01-02 10:43] VITALS: BP 128/84; PULSE 65; TEMP 36.6; O2SAT 99
--- NOTE | 2017-01-02 14:45 | Anesthesiology Progress Note ---
Anesthesia Progress Note Date of Service Jan 02, 2017. Progress Notes Patient had surgery 6 days ago, no airway issues, history of hypertension, hepatitis C, seizures, anxiety, PTSD. Labs from 12/28/16 on eval. sheet. For I& D of hematoma/seroma of lumbar spine.
[2017-01-02 14:46] VITALS: BP 134/78; PULSE 72; TEMP 36.7; O2SAT 98
[2017-01-02] MEDS: SODIUM CHLORIDE 0.9% 1000ML 1,000 ML IV SCH (21:11)
[2017-01-02] MEDS: ZOLPIDEM TARTRATE 10 MG TAB PO SCH (21:24)
[2017-01-02 23:16] VITALS: BP 122/77; PULSE 86; TEMP 38.1; O2SAT 93
[2017-01-02 23:36] VITALS: TEMP 38
[2017-01-02] MEDS: ACETAMINOPHEN 500 MG TAB PO PRN (23:38)
[2017-01-03] VITALS (12 sets, daily range): BP systolic 100–122; BP diastolic 61–80; PULSE 65–81; TEMP 36.4–38.1; O2SAT 91–98
[2017-01-03] MEDS: LACTATED RINGER'S 1000ML 1,000 ML IV SCH ×2 (03:43→16:37)
[2017-01-03] MEDS: GABAPENTIN 800 MG TAB PO SCH ×3 (05:51→21:44)
[2017-01-03] MEDS: ACETAMINOPHEN 500 MG TAB PO PRN (05:51)
[2017-01-03] MEDS: HYDROmorphone HCL 0.5MG/ML 50 ML CASSETTE IV PRN ×5 (07:53→22:49)
[2017-01-03] MEDS: LISINOPRIL/HCTZ 20/25MG TAB PO SCH (09:00)
[2017-01-03] MEDS: ARIPIprazole TAB 15 MG TAB PO SCH ×2 (09:12→21:43)
[2017-01-03] MEDS: DIVALPROEX 500 MG EXTENDED RELEASE TAB PO SCH ×2 (09:13→21:44)
[2017-01-03] MEDS: AMLODIPINE BESYLATE 5 MG TAB PO SCH (09:13)
[2017-01-03] MEDS: RANITIDINE HCL 150 MG TAB PO SCH ×2 (09:13→21:43)
[2017-01-03] MEDS ORDERED: HYDROmorphone INJ 2 MG/ML SYR/VIAL ONE (12:12)
[2017-01-03] MEDS ORDERED: FENTANYL CITRATE INJ 50 MCG/1 ML 2 ML VIAL ONE (12:12)
[2017-01-03] MEDS ORDERED: MIDAZOLAM HCL 1 MG/ML 2ML VIAL ONE (12:12)
[2017-01-03] MEDS ORDERED: LACTATED RINGER'S 1000ML 1,000 ML IV PRN (12:30)
[2017-01-03] MEDS ORDERED: ONDANSETRON INJ 2 MG/ML 2 ML VIAL IV PRN ×2 (12:30→14:45)
[2017-01-03] MEDS ORDERED: HYDROmorphone INJ 1 MG/ML SYR IV PRN ×3 (12:30→14:45)
--- NOTE | 2017-01-03 12:56 | History & Physical Bridge Note ---
H&P Re-Evaluation Bridge Note: I have examined the patient, reviewed the History & Physical and in the interval since the performance of the History & Physical I have noted the following changes of clinical significance: No changes noted evacuation hematoma, decompression L1-2
[2017-01-03] MEDS ORDERED: NURSING VERBAL MED ORDER STA (13:12)
[2017-01-03] MEDS ORDERED: CEFAZOLIN IV 2,000 MG/60 ML D5W IV ONE (13:16)
[2017-01-03] MEDS ORDERED: BUPIVACAINE/EPINEPHRINE 0.5% MPF 1:200,000 30 ML VIAL ONE (13:30)
[2017-01-03] MEDS ORDERED: ACETAMINOPHEN 1000 MG/100 ML IV IV ONE (14:12)
[2017-01-03] MEDS ORDERED: GELATIN SPONGE SZ 100 ONE (14:30)
[2017-01-03] MEDS ORDERED: THROMBIN FOR SOLN 20000 UNIT KIT ONE (14:30)
[2017-01-03] MEDS ORDERED: THROMBIN 5,000 UNITS (RECOMBINANT) TOP ONE (14:36)
--- NOTE | 2017-01-03 14:43 | [facility] Operative Report ---
Operative Report Operative Date Jan 03, 2017. Pre-Operative Diagnosis Postoperative hematoma versus seroma creating severe stenosis centrally L1 through L3. Post-Operative Diagnosis same Procedure(s) Performed decomp Surgeon Dr. Harjinder Duran Ground Water Contractor Surgeon(s) Kristan Dalton PA-C Estimated Blood Loss 300mL Findings hematoma Specimens None per surgeon I attest to the content of the Intraoperative Record and any orders documented therein. Any exceptions are noted below.
[2017-01-03] MEDS ORDERED: DO NOT ADMINISTER PNEUMOCOCCAL VACCINE PRN ×2 (14:45)
[2017-01-03] MEDS ORDERED: LORAZEPAM INJ 1 MG in SYRINGE 0 ML IV PRN (14:45)
[2017-01-03] MEDS ORDERED: DO NOT ADMINISTER FLU VACCINE PRN ×3 (14:45)
[2017-01-03] MEDS ORDERED: OXYCODONE/ACETAMINOPHEN 5-325 TAB PO PRN (14:45)
[2017-01-03] MEDS ORDERED: MAGNESIUM HYDROXIDE SUSP 30 ML UDC PO PRN (14:45)
[2017-01-03] MEDS ORDERED: ACETAMINOPHEN 325 MG TAB PO PRN (14:45)
[2017-01-03] MEDS ORDERED: ACETAMINOPHEN 500 MG TAB PO PRN (14:45)
[2017-01-03] MEDS ORDERED: LORAZEPAM 1 MG TAB PO PRN (14:45)
[2017-01-03] MEDS ORDERED: ORM MISCELLANEOUS MED TOP ONE (15:04)
--- NOTE | 2017-01-03 15:10 | OPERATIVE REPORT ---
DATE OF OPERATION: 01/03/2017 PREOPERATIVE DIAGNOSIS: Epidural hematoma status post lumbar decompression and fusion. POSTOPERATIVE DIAGNOSIS: Same. PROCEDURE PERFORMED: 1. Lumbar decompression T12 and L1. 2. Evacuation of hematoma. SURGEON: Dr. Harjinder Duran. DRAFTER (CAD) ELECTRONIC: Kristan Beasley PA-C. Due to the complex nature of the procedure, the entire surgery was performed with the assistant store manager operations of Kristan Beasley PA-C. The health care assistant, under direct supervision, was involved in the actual performance of all aspects of the surgical procedure including hemostasis, tissue retraction and incision, instrument management, patient positioning, and wound closure. ANESTHESIA: General. DISPOSITION: The patient awakened and taken to PACU in stable condition. HISTORY OF PATIENT'S PROBLEMS: This is a 56-year-old old male who is well known to me that is approximately 2 weeks status post lumbar decompression and fusion. She presented to the Emergency Room in [place] yesterday with worsening back pain. MRI was obtained and they determined he had a large complex epidural fluid consistent with hematoma. Subsequently, we had him brought to [facility] for evaluation and elected to undergo decompression and evacuation of hematoma. Risks, benefits, pros, cons, and alternatives were outlined in detail. OPERATION AND FINDINGS: DESCRIPTION OF PROCEDURE: The patient was met with preoperatively, case discussed and all questions were addressed. At that point the patient was taken back to the operative suite and after undergoing successful general intubation by the department of anesthesia was placed in prone position on the Rian table atop Donald frame. All bony prominences were well padded and the eyes were inspected to ensure there was no external pressure placed upon them. At this point, lumbar spine was prepped and draped in normal sterile fashion. Sharp dissection with the assistance of Bovie cautery performed down to and exposing the previous decompressed site at L2-3. I did not bring the dissection caudally to T12 and L1 as based on MRI we could appreciate possible migration of the hematoma underneath the lamina of T12 and 1. Massive amounts of coagulated blood was identified and subsequently removed. This included several liters of antibiotic solution to help evacuate all blood products. The blood was in the epidural space and required midline laminectomy of L1 and T12 to adequately address all compression. We identified hematoma at both levels of significant proportions. We were able to remove all clot without difficulty. After this was complete two 7 flat ELA drains were inserted and incision was closed with 1-0 Vicryl in the fascia, 2-0 Vicryl subcutaneously and jordan for final skin closure. Steri-Strips and sterile dressing placed. The patient was awakened and taken to PACU in stable condition. I attest to the content of the Intraoperative Record and any orders documented therein. Any exceptio ns are noted below.
[2017-01-03] MEDS: FENTANYL CITRATE INJ 50 MCG/1 ML 2 ML VIAL IV PRN ×2 (15:37→15:42)
--- NOTE | 2017-01-03 15:58 | Anesthesiology Progress Note ---
Anesthesia Post Op Note Date & Time Jan 03, 2017 at 15:58 Vital Signs Pain Intensity: 6 Vital Signs Past 12 Hours Date Time Temp Pulse Resp B/P Pulse Ox O2 Delivery O2 Flow Rate FiO2 01/03/17 15:45 81 16 134/81 97 Nasal Cannula 4 01/03/17 15:35 76 16 131/83 100 Nasal Cannula 4 01/03/17 15:25 78 16 140/85 100 Mask 10 01/03/17 15:15 77 16 133/88 100 Mask 10 01/03/17 15:07 36.9 75 16 137/86 100 Mask 10 01/03/17 11:14 36.9 65 18 114/78 95 Room Air 01/03/17 09:11 74 117/78 01/03/17 08:15 Room Air 01/03/17 06:38 37.8 01/03/17 05:49 38.1 01/03/17 04:01 37.9 77 18 110/74 91 Room Air Notes Mental Status: alert / awake / arousable, participated in evaluation Pt Amnestic to Procedure: Yes Nausea / Vomiting: adequately controlled Pain: adequately controlled Airway Patency, RR, SpO2: stable & adequate BP & HR: stable & adequate Hydration State: stable & adequate Anesthetic Complications: no major complications apparent Pt doing well. Pain now tolerable.
[2017-01-03] MEDS ORDERED: EpHEDrine SULFATE 50MG/5ML SYR ONE (16:45)
[2017-01-03] MEDS ORDERED: LIDOCAINE HCL 2% 2 ML VIAL (20MG/ML) ONE (16:45)
[2017-01-03] MEDS ORDERED: GLYCOPYRROLATE INJ 0.2 MG/ML VIAL ONE (16:45)
[2017-01-03] MEDS ORDERED: NEOSTIGMINE METHYLSULFATE 1 MG/ML 10ML VIAL ONE (16:45)
[2017-01-03] MEDS ORDERED: PROPOFOL IV EMULSION 10 MG/ML 20 ML VIAL IV ONE (16:45)
[2017-01-03] MEDS ORDERED: ONDANSETRON INJ 2 MG/ML 2 ML VIAL ONE (16:45)
[2017-01-03] MEDS ORDERED: DEXAMETHASONE SOD INJ 4 MG/ML VIAL ONE (16:45)
[2017-01-03] MEDS ORDERED: ROCURONIUM BROMIDE 10 MG/ML 5 ML VIAL ONE (16:45)
[2017-01-03] MEDS: CEFAZOLIN IV 2,000 MG in DEXTROSE 5% 50ML 50 ML IV SCH (21:39)
[2017-01-03] MEDS: SODIUM CHLORIDE 0.9% 1000ML 1,000 ML IV SCH (21:39)
[2017-01-03] MEDS: ZOLPIDEM TARTRATE 10 MG TAB PO SCH (21:44)
[2017-01-03] MEDS: DOCUSATE SODIUM 100 MG CAP PO SCH (21:54)
[2017-01-04] VITALS (7 sets, daily range): BP systolic 100–129; BP diastolic 66–77; PULSE 61–86; TEMP 36.4–37; O2SAT 92–100
[2017-01-04] MEDS: LACTATED RINGER'S 1000ML 1,000 ML IV SCH (02:59)
[2017-01-04] MEDS: GABAPENTIN 800 MG TAB PO SCH ×3 (05:53→22:06)
[2017-01-04] MEDS: CEFAZOLIN IV 2,000 MG in DEXTROSE 5% 50ML 50 ML IV SCH ×2 (05:53→14:00)
[2017-01-04] MEDS: HYDROmorphone HCL 0.5MG/ML 50 ML CASSETTE IV PRN ×4 (06:56→23:17)
[2017-01-04 07:42] LABS: PARTIAL THROMBOPLASTIN RATIO 0.9
[2017-01-04] MEDS: RANITIDINE HCL 150 MG TAB PO SCH ×2 (08:47→20:47)
[2017-01-04] MEDS: AMLODIPINE BESYLATE 5 MG TAB PO SCH (08:47)
[2017-01-04] MEDS: DOCUSATE SODIUM 100 MG CAP PO SCH ×2 (08:48→20:46)
[2017-01-04] MEDS: ARIPIprazole TAB 15 MG TAB PO SCH ×2 (08:48→20:48)
[2017-01-04] MEDS: LISINOPRIL/HCTZ 20/25MG TAB PO SCH (08:48)
[2017-01-04] MEDS: DIVALPROEX 500 MG EXTENDED RELEASE TAB PO SCH ×2 (08:48→20:47)
[2017-01-04] MEDS ORDERED: OXYC-57 PO (10:58)
--- NOTE | 2017-01-04 10:59 | Discharge Instructions ---
Discharge Instructions Admission Reason for Admission: Compression Seroma Discharge Discharge Diagnosis / Problem: stenosis Discharge Goals Goal(s): Improve function Activity Recommendations Activity Limitations: per Instructions/Follow-up section . Instructions / Follow-Up Instructions / Follow-Up ACTIVITY RECOMMENDATIONS: SELF CARE INSTRUCTIONS AFTER THORACIC/LUMBAR FUSIONS 1. You may walk to your tolerance. It is good exercise for your legs and back. Expect some back and intermittent leg aches and pains. 2. You may perform "counter-top" level activities (make a sandwich, pierce with a project, etc.). 3. No bending or lifting of more than 10 pounds or back twisting of any nature (roll like a log when turning in bed). 4. You may ride in a car for 20-30 minutes at a time. No driving until after your first visit with your doctor. 5. Frequent changes of position and restricting sitting to 30 minutes at a time will help limit the amount of back spasms and stiffness you may experience. 6. You may discontinue the use of ambulatory aids (cane, crutches, etc.) once your strength and confidence allow. 7. You may mixing supervisor the shower and let water strike your incision when you arrive home at least once daily. Do not take a tub bath, sit in a hot tub or go into a swimming pool until after your first recheck in the office. SPECIAL CARE INSTRUCTIONS: VERY IMPORTANT TO READ AND REVIEW A. Your surgical incision has been closed with a cosmetic suture under the skin that will dissolve in about 6 weeks. In 14 days, you can use a pair of clean scissors and cut the suture that is left outside of the skin at the ends of your incision. 1. The small skin tapes can be removed 7 days after surgery if they have not fallen off by that point. 2. You may keep the wound open to air as much as possible to promote healing after post-op day number 5 unless told otherwise by your doctor. 3. If you think the wound looks like it is becoming infected (redness or worsening drainage) and/or you are experiencing fever, chill or worsening back pain and muscle spasms, contact the office so that we may evaluate you as soon as possible. B. Complications are uncommon, but please contact us if you have any signs or symptoms of: 1. wound infection (fever higher than 102.5 degrees F, redness, separation of wound, drainage, or increasing pain from the incision) 2. blood clots in legs (pain, swelling, redness and warmth in legs) 3. urinary tract infection (fever higher than 102.5 degrees F, burning upon urination or increased frequency of urination) 4. nerve problems (inability to walk on your toes or heels, numbness, loss of bowel or bladder control) 5. any other symptoms that concern you C. Please call the office at if you have any concerns or questions about your operation or recovery. D. No smoking! Smoking drastically decreases the chance of a solid fusion. E. Do not take any anti-inflammatory medications (Indocin, Advil, Motrin, Aspirin, Naprosyn, etc.) as these may inhibit the chance of a solid fusion. Tylenol is okay to take for pain. MANAGING PAIN AFTER SPINAL SURGERY 1. Narcotic medication is intended for short-term use and will be provided for surgical pain. Surgical pain usually lasts for a period of 4-6 weeks. Narcotic medication includes Percocet, Vicodin, Darvocet, Tylenol #3 or Lortab. 2. Longer-term pain is more appropriately treated with non-narcotic medication such as Tylenol ES. 3. Muscle spasm is not appropriately treated with narcotics. Muscle relaxers such as Soma, Flexeril or Skelaxin can be used along with Tylenol ES. 4. Remember that we all live with some "aches and pains". This is not unusual or uncommon after an injury or as we get older. a. Back pain is expected and may include muscle spasms for 4 to 6 weeks after surgery. The pain should gradually improve. If the pain worsens for no apparent reason, please contact the office. b. Intermittent leg pain may also be experienced and should not be concerned about unless it worsens for no apparent reason. If so, please contact the office. 5. We will provide appropriate medication within the normal guidelines of their prescribed use. We will also be very cautious and aware of potential abuse and extended duration of patients' medication needs. a. Pain medications are for your comfort and to assist with sleep and rest so that the tissue can heal. They are not provided in order to return to normal activity and should not be used through the day. To do so or worsening pain at night can result from ongoing tissue damage and development of tolerance to the prescribed medicine. 6. Please allow 2-3 days to process refills. Prescriptions will not be mailed but must be picked up at the office. FOLLOW UP VISIT: Keep your scheduled follow-up appointment. Any questions, please call the office at . Current Hospital Diet Patient's current hospital diet: Regular Diet Discharge Diet Recommended Diet: Regular Diet Procedures Procedures Performed: Evacuation of Hematoma L1-L2 Pending Studies Studies pending at discharge: no Medical Emergencies . Who to Call and When: Medical Emergencies: If at any time you feel your situation is an emergency, please call 911 immediately. . Non-Emergent Contact Non-Emergency issues call your: Primary Care Provider . "Provider Documentation" section prepared by Harjinder Duran. VTE Core Measure Inpt VTE Proph given/why not?: Kunal Brown, SCD's
--- NOTE | 2017-01-04 11:00 | PROGRESS NOTE ---
DATE: 01/04/2017 SUBJECTIVE: Postop day 1. Back pain controlled markedly improved. Leg pain improved. Vital signs stable. T-max 37.0. ELA drained 50s-60s mL respectively. OBJECTIVE: On exam, the patient is in chair at bedside. Has good strength to testing. Appears comfortable. ASSESSMENT: Status post incision and drainage lumbar spine and evacuation of hematoma. PLAN: At this time, will continue physical therapy and monitor ELA output. Hopefully, be able to discharge home this weekend.
--- NOTE | 2017-01-04 13:45 | Anesthesiology Progress Note ---
Anesthesia Post Op Note Date & Time Jan 04, 2017 at 13:44 Vital Signs Vital Signs Past 12 Hours Date Time Temp Pulse Resp B/P Pulse Ox O2 Delivery O2 Flow Rate FiO2 01/04/17 12:06 68 20 129/77 94 Room Air 01/04/17 07:09 36.4 74 16 118/70 96 Room Air 01/04/17 07:09 Room Air 01/04/17 03:17 36.9 86 16 113/72 94 Room Air Notes Mental Status: alert / awake / arousable, participated in evaluation Pt Amnestic to Procedure: Yes Nausea / Vomiting: adequately controlled Pain: adequately controlled Airway Patency, RR, SpO2: stable & adequate BP & HR: stable & adequate Hydration State: stable & adequate Anesthetic Complications: no major complications apparent
[2017-01-04] MEDS: SODIUM CHLORIDE 0.9% 1000ML 1,000 ML IV SCH (17:19)
[2017-01-04] MEDS: ZOLPIDEM TARTRATE 10 MG TAB PO SCH (20:49)
[2017-01-05] VITALS (9 sets, daily range): BP systolic 91–117; BP diastolic 54–74; PULSE 70–87; TEMP 36.6–37.8; O2SAT 92–96
[2017-01-05] MEDS: GABAPENTIN 800 MG TAB PO SCH ×4 (05:40→22:00)
[2017-01-05] MEDS ORDERED: BISACODYL 10 MG SUPP PR PRN (06:00)
[2017-01-05] MEDS ORDERED: BISACODYL 5 MG TABEC PO PRN (06:00)
[2017-01-05] MEDS: HYDROmorphone HCL 0.5MG/ML 50 ML CASSETTE IV PRN ×4 (06:51→23:03)
[2017-01-05] MEDS: ARIPIprazole TAB 15 MG TAB PO SCH ×2 (09:03→20:33)
[2017-01-05] MEDS: POLYETHYLENE (MIRALAX) 17 GM PACK PO SCH (09:04)
[2017-01-05] MEDS: DIVALPROEX 500 MG EXTENDED RELEASE TAB PO SCH ×2 (09:04→20:34)
[2017-01-05] MEDS: DOCUSATE SODIUM 100 MG CAP PO SCH ×2 (09:04→20:33)
[2017-01-05] MEDS: LISINOPRIL/HCTZ 20/25MG TAB PO SCH (09:05)
[2017-01-05] MEDS: RANITIDINE HCL 150 MG TAB PO SCH ×2 (09:05→20:33)
[2017-01-05] MEDS: AMLODIPINE BESYLATE 5 MG TAB PO SCH (09:05)
--- NOTE | 2017-01-05 16:47 | PROGRESS NOTE ---
DATE: 01/05/2017 SUBJECTIVE: Postop day #2. Back pain and leg pain markedly improved. Vital signs stable. T-max 36.9. ELA drained significant for 40 and 70 respectively. On exam, has good strength to testing. Appears comfortable. ASSESSMENT: Status post incision and drainage and evacuation of hematoma, extension of the decompression. PLAN: Overall, he is doing well, will continue with physical therapy throughout the weekend and anticipate home Sunday upon removal of the drains.
[2017-01-05] MEDS: ACETAMINOPHEN 500 MG TAB PO PRN (20:34)
[2017-01-05] MEDS: ZOLPIDEM TARTRATE 10 MG TAB PO SCH (20:34)
[2017-01-05] MEDS: SODIUM CHLORIDE 0.9% 1000ML 1,000 ML IV SCH (21:58)
[2017-01-06] VITALS (7 sets, daily range): BP systolic 92–114; BP diastolic 57–73; PULSE 71–86; TEMP 36.8–37.6; O2SAT 94–98
[2017-01-06] MEDS: GABAPENTIN 800 MG TAB PO SCH ×3 (05:51→20:54)
[2017-01-06] MEDS ORDERED: CEFAZOLIN IV 2,000 MG/60 ML D5W IV SCH (06:00)
[2017-01-06] MEDS: HYDROmorphone HCL 0.5MG/ML 50 ML CASSETTE IV PRN ×3 (06:58→22:46)
[2017-01-06] MEDS ORDERED: POLYETHYLENE (MIRALAX) 17 GM PACK PO SCH (09:00)
[2017-01-06] MEDS: DOCUSATE SODIUM 100 MG CAP PO SCH ×2 (09:13→20:54)
[2017-01-06] MEDS: ARIPIprazole TAB 15 MG TAB PO SCH ×2 (09:14→20:54)
[2017-01-06] MEDS: AMLODIPINE BESYLATE 5 MG TAB PO SCH (09:14)
[2017-01-06] MEDS: DIVALPROEX 500 MG EXTENDED RELEASE TAB PO SCH ×2 (09:14→20:54)
[2017-01-06] MEDS: LISINOPRIL/HCTZ 20/25MG TAB PO SCH (09:14)
[2017-01-06] MEDS: RANITIDINE HCL 150 MG TAB PO SCH ×2 (09:15→20:54)
[2017-01-06] MEDS: POLYETHYLENE (MIRALAX) 17 GM PACK PO SCH (09:15)
--- NOTE | 2017-01-06 10:12 | PROGRESS NOTE ---
DATE: 01/06/2017 DATE: 01/06/2017. SUBJECTIVE: Back pain is markedly improved. Leg pain improved, ambulating well. Vital signs stable. T-max 37.6. ELA drains decreasing appropriately. OBJECTIVE: On exam he is in chair at bedside. Has good strength to testing. ASSESSMENT: Status post incision and drainage, laminectomy of lumbar spine. PLAN: At this time, will maintain a ELA drain throughout the day today. Encourage ambulation as tolerated. Anticipate home tomorrow.
[2017-01-06] MEDS: ZOLPIDEM TARTRATE 10 MG TAB PO SCH (20:53)
[2017-01-06] MEDS: SODIUM CHLORIDE 0.9% 1000ML 1,000 ML IV SCH (21:31)
[2017-01-07 03:40] VITALS: BP 112/75; PULSE 74; TEMP 36.5; O2SAT 93
[2017-01-07] MEDS: GABAPENTIN 800 MG TAB PO SCH (05:51)
[2017-01-07] MEDS: HYDROmorphone HCL 0.5MG/ML 50 ML CASSETTE IV PRN (06:58)
[2017-01-07 07:33] VITALS: BP 92/60; PULSE 76; TEMP 36.6; O2SAT 96
[2017-01-07] MEDS: POLYETHYLENE (MIRALAX) 17 GM PACK PO SCH (08:29)
[2017-01-07] MEDS: RANITIDINE HCL 150 MG TAB PO SCH (08:29)
[2017-01-07] MEDS: DIVALPROEX 500 MG EXTENDED RELEASE TAB PO SCH (08:29)
[2017-01-07] MEDS: DOCUSATE SODIUM 100 MG CAP PO SCH (08:29)
[2017-01-07] MEDS: AMLODIPINE BESYLATE 5 MG TAB PO SCH (08:30)
[2017-01-07] MEDS: LISINOPRIL/HCTZ 20/25MG TAB PO SCH (08:30)
[2017-01-07] MEDS: ARIPIprazole TAB 15 MG TAB PO SCH (08:30)
[2017-01-07 12:05] VITALS: BP 92/60; PULSE 76; TEMP 36.6; O2SAT 96
--- NOTE | 2017-01-07 15:01 | DISCHARGE SUMMARY ---
PRINCIPAL DIAGNOSIS: Epidural hematoma. HOSPITAL COURSE FOLLOWS: On 01/01/2017, he was transferred to our hospital. He failed to respond with rest and medications and subsequently elected to undergo a decompression and evacuation of hematoma on 01/03/2017. This did require additional decompression of the L1 and T12 lamina secondary to extent of the hematoma. Postoperatively, this patient's symptoms improved dramatically. He was up and ambulatory, ELA drain was decreased appropriately, subsequently on January 07, he was discharged home. Discharge orders and instructions found on the chart for further review. MILAN
[2017-07-12] MEDS ORDERED: GABA1CAP5 PO (10:32)
[2017-07-12] MEDS ORDERED: ONDA8TAB6 PO (10:32)
[2017-07-12] MEDS ORDERED: NRN600 PO (10:32)
[2017-07-12] MEDS ORDERED: CYM/30 PO (10:32)
[2017-07-12] MEDS ORDERED: CYCL10TA6 PO (10:32)
[2017-07-12] MEDS ORDERED: ACET-1256 PO (10:32)
[2017-07-12] MEDS ORDERED: MELO7.5T5 PO (10:32)
[2017-07-12] MEDS ORDERED: CELE100C PO (10:32)
== END 2017-01-07 13:25 | disposition home or self-care (01) | DRG 909 ==
LOC: C.3E 21:14
PROVIDERS: ADMIT Orthopaedic Surgery Orthopaedic Surgery of the Spine; ATTEND Orthopaedic Surgery Orthopaedic Surgery of the Spine
PROC: 00C30ZZ Extirpation of Matter from Intracranial Epidural Space, Open Approach (ICD-10-PCS; principal; 2017-01-03 14:30)
DX: M96.840 Postprocedural hematoma of a musculoskeletal structure following a musculoskeletal system procedure (principal); Y83.8 Other surgical procedures as the cause of abnormal reaction of the patient, or of later complication, without mention of misadventure at the time of the procedure; I10 Essential (primary) hypertension; G40.909 Epilepsy, unspecified, not intractable, without status epilepticus; G62.9 Polyneuropathy, unspecified; F41.9 Anxiety disorder, unspecified; F43.10 Post-traumatic stress disorder, unspecified; Z79.891 Long term (current) use of opiate analgesic; Z79.899 Other long term (current) drug therapy

== ENCOUNTER 2017-07-27 07:17 | Inpatient (IN) | payer OTHER ==
[2017-07-12 10:03] VITALS: BMI 29.0
--- NOTE | 2017-07-12 10:54 | PAT Medication Instructions ---
Service Date Jul 12, 2017. Current Home Medication List Acetaminophen (Tylenol), 1 TAB PO Q8 PRN for Pain Alprazolam (Xanax), 1 MG PO Q6H PRN for Anxiety/Agitation Amlodipine (Norvasc), 5 MG PO QAM Aripiprazole (Abilify *), 15 MG PO BID Ascorbic Acid (Vitamin C), 500 MG PO QAM Celecoxib (Celebrex), 200 MG PO BIDM Cyclobenzaprine Hcl (Flexeril), 1 TAB PO QAM Divalproex Sodium (Divalproex Sodium ER), 500 MG PO QAM Divalproex Sodium Extended Rel (Depakote Extended Rel *), 1,000 MG PO HS Duloxetine HCl (Cymbalta), 1 CAP PO BID Gabapentin (Gabapentin), 1,200 MG PO HS Gabapentin (Neurontin), 400 MG PO TID Hydrocodone/Acetaminophen 5MG/325MG ([place] 5MG/325MG), 1 TABLET PO Q4-6H PRN for Pain Meloxicam (Mobic), 15 MG PO QAM Ondansetron Hcl (Zofran), 8 MG PO DAILY PRN for Nausea Ranitidine Hcl (Zantac), 150 MG PO BID Zolpidem Tartrate (Ambien *), 10 MG PO HS Medication Instructions For Your Scheduled Surgery - Hold the following medications the morning of surgery: Ascorbic Acid (Vitamin C), 500 MG PO QAM Celecoxib (Celebrex), 200 MG PO BIDM (otherwise okay to continue per surgeon) Meloxicam (Mobic), 15 MG PO QAM (otherwise okay to continue per surgeon) Cyclobenzaprine Hcl (Flexeril), 1 TAB PO QAM - Take the following medications the morning of surgery with a sip of water OTHERWISE NOTHING TO EAT OR DRINK AFTER MIDNIGHT: Acetaminophen (Tylenol), 1 TAB PO Q8 PRN for Pain Amlodipine (Norvasc), 5 MG PO QAM Alprazolam (Xanax), 1 MG PO Q6H PRN for Anxiety/Agitation Aripiprazole (Abilify *), 15 MG PO BID Divalproex Sodium (Divalproex Sodium ER), 500 MG PO QAM Gabapentin (Neurontin), 400 MG PO TID Duloxetine HCl (Cymbalta), 1 CAP PO BID Hydrocodone/Acetaminophen 5MG/325MG ([place] 5MG/325MG), 1 TABLET PO Q4-6H PRN for Pain (may take if needed up to 4 hours prior to surgery) Ondansetron Hcl (Zofran), 8 MG PO DAILY PRN for Nausea Ranitidine Hcl (Zantac), 150 MG PO BID - Take the following medications as scheduled the night before surgery: Acetaminophen (Tylenol), 1 TAB PO Q8 PRN for Pain Alprazolam (Xanax), 1 MG PO Q6H PRN for Anxiety/Agitation Aripiprazole (Abilify *), 15 MG PO BID Zolpidem Tartrate (Ambien *), 10 MG PO HS Celecoxib (Celebrex), 200 MG PO BIDM Divalproex Sodium Extended Rel (Depakote Extended Rel *), 1,000 MG PO HS Gabapentin (Neurontin), 400 MG PO TID Duloxetine HCl (Cymbalta), 1 CAP PO BID Gabapentin (Gabapentin), 1,200 MG PO HS Hydrocodone/Acetaminophen 5MG/325MG ([place] 5MG/325MG), 1 TABLET PO Q4-6H PRN for Pain Ondansetron Hcl (Zofran), 8 MG PO DAILY PRN for Nausea Ranitidine Hcl (Zantac), 150 MG PO BID If you have any questions please call us at [phone] or [phone] or [phone]
[2017-07-12 11:28] LABS: BASO % 0.4 %; BASO ABS # 0.02 K/uL (0-0.2); COMPLETE YES; EOS % 1.5 %; HEMATOCRIT 41.9 % (42-52); IG% 0.2 %; LYMPH % 37.8 %; MEAN CELL VOLUME 94.8 fL (80-100); MEAN CORPUSCULAR HEMOGLOBIN 32.1 pg (25-34); MEAN CORPUSCULAR HGB CONC 33.9 g/dl (32-36); MEAN PLATELET VOLUME 10.5 fL (7.4-10.4); NEUT % 48.1 %; PLATELET COUNT 182 K/uL (130-400); RED BLOOD COUNT 4.42 M/uL (4.7-6.1); WHITE BLOOD COUNT 4.76 K/uL (4.8-10.8)
[2017-07-12 11:31] LABS: URINE APPEARANCE CLEAR (CLEAR); URINE BILIRUBIN NEG (NEG); URINE COLOR DK YELLOW; URINE NITRITE NEG (NEG); URINE SPECIFIC GRAVITY 1.031 (1.000-1.030); UROBILINOGEN NEG (NEG); ZZUR CULT IF INDIC CLEAN CATCH NO
[2017-07-12 11:40] LABS: MANUAL MICROSCOPIC REQUIRED? NO; REVIEW REQ? NO
[2017-07-12 11:41] LABS: PROTHROMBIN TIME (PATIENT) 10.2 SECONDS (9.0-12.0)
[2017-07-12 12:04] LABS: ESTIMATED AVERAGE GLUCOSE 117 mg/dl; HA1C FLAG Normal (Normal)
--- NOTE | 2017-07-25 17:15 | History and Physical ---
History & Physical Date Jul 25, 2017. Chief Complaint Right shoulder pain History of Present Illness The patient is a 57 year old male with complaints of Right shoulder pain. He states this has been going on for some time. He describes the pain as constant dull ache pain with it being sharp at times. He has tried PT, NSAIDs and cortisone injections with no relief. He is scheduled for a Right shoulder resurfacing verses hemiarthroplasty and open DCE. Past Medical/Surgical History Medical Problems: (1) Epidural hematoma (2) Lumbar stenosis with neurogenic claudication Additional History Hepatic Disease: No Endocrine Disorder: No Kidney Disease: No Hypertension: Yes Heart Disease: No Bleeding Tendencies: No Infectious Diseases: No Allergies Coded Allergies: No Known Allergies (Verified , `, 07/12/17) Home Medications Scheduled Amlodipine (Norvasc), 5 MG PO QAM Aripiprazole (Abilify *), 15 MG PO BID Ascorbic Acid (Vitamin C), 500 MG PO QAM Celecoxib (Celebrex), 200 MG PO BIDM Cyclobenzaprine Hcl (Flexeril), 1 TAB PO QAM Divalproex Sodium (Divalproex Sodium ER), 500 MG PO QAM Divalproex Sodium Extended Rel (Depakote Extended Rel *), 1,000 MG PO HS Duloxetine HCl (Cymbalta), 1 CAP PO BID Gabapentin (Gabapentin), 1,200 MG PO HS Gabapentin (Neurontin), 400 MG PO TID Meloxicam (Mobic), 15 MG PO QAM Ranitidine Hcl (Zantac), 150 MG PO BID Zolpidem Tartrate (Ambien *), 10 MG PO HS Scheduled PRN Acetaminophen (Tylenol), 1 TAB PO Q8 PRN for Pain Alprazolam (Xanax), 1 MG PO Q6H PRN for Anxiety/Agitation Hydrocodone/Acetaminophen 5MG/325MG ([place] 5MG/325MG), 1 TABLET PO Q4-6H PRN for Pain Ondansetron Hcl (Zofran), 8 MG PO DAILY PRN for Nausea Physical Examination Skin: warm/dry Eyes: normal inspection, EOMI ENT: normal ENT inspection Head: normocephalic, atraumatic Neck: supple, no adenopathy Respiratory/Chest: lungs clear, normal breath sounds Cardiovascular: regular rate, rhythm, no murmur Abdomen / GI: normal bowel sounds, non tender Extremities: normal inspection, + pertinent finding (90 degrees flexion, 90 degrees abduction, 75 degrees external rotation. decreased strength due to pain. 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 He has failed conservative treatment including NSAIDs, PT, and cortisone injections. He would like to proceed with a Right shoulder resurfacing verses hemiarthroplasty and open DCE. Risks and benefits to surgery were discussed that include but not limited to Pain, DVT, stiffness, Needed for revision surgery, blood loss, blood vessel damage, infection, nerve damage, anesthesia risks, and . He understands these risks and wishes to proceed. All questions were answered to his satisfaction.
[2017-07-27] VITALS (9 sets, daily range): BP systolic 145–166; BP diastolic 84–104; PULSE 68–97; TEMP 36.4–36.8; O2SAT 91–98; Ht 180.3 cm; Wt 96.6 kg
[~2017-07-27] VITALS: Ht 180.3 cm; Wt 96.6 kg
[~2017-07-27 07:17] MED LIST changes: +ACET-1256 PO; +ACETAMINOPHEN 500 MG TAB PO SCH; +CEFAZOLIN 2000 MG/60 ML D5W 60 ML IV SCH; +CELE100C PO; +CYCL10TA6 PO; +CYM/30 PO; +CeleBREX 200 MG CAP PO SCH; +DEXAMETHASONE 4 MG TAB PO SCH; +FAMOTIDINE 20 MG TAB PO SCH; +GABA1CAP5 PO; -GABA800T PO; +GABAPENTIN 300 MG CAP PO SCH; +LACTATED RINGER'S 1000ML 1,000 ML IV SCH; +LACTATED RINGER'S 1000ML IV SCH; -LISI-788 PO; +MELO7.5T5 PO; +METOCLOPRAMIDE HCL 10 MG TAB PO SCH; +NRN600 PO; +ONDA8TAB6 PO; +OXYCODONE HCL 10 MG TABCR (OXYCONTIN) PO SCH; +ROPIVACAINE 0.5% 5 MG/ML 30 ML VIAL ONE; +ROPIVACAINE 5MG/ML 30 ML 150 MG, BUPIVACAINE/EPINEPHR 0.5% MPF 30 ML, KETOROLAC TROMETH... INFIL SCH; -RXC5 PO; +TRANEXAMIC ACID INJ 1,000 MG in SODIUM CHLORIDE 0.9% 100ML 100 ML IV SCH
[2017-07-27] MEDS ORDERED: MIDAZOLAM HCL 1 MG/ML 2ML VIAL ONE ×2 (07:40)
[2017-07-27] MEDS ORDERED: EpHEDrine SULFATE INJ 50 MG/ML AMP IV PRN (09:00)
[2017-07-27] MEDS ORDERED: ATROPINE SULFATE 0.1 MG/ML 5ML SYR IV PRN (09:00)
[2017-07-27] MEDS ORDERED: FENTANYL CITRATE INJ 50 MCG/1 ML 2 ML VIAL IV PRN (09:00)
[2017-07-27] MEDS ORDERED: ONDANSETRON INJ 2 MG/ML 2 ML VIAL IV PRN ×2 (09:00→13:00)
[2017-07-27] MEDS ORDERED: LIDOCAINE HCL 2% 2 ML VIAL (20MG/ML) ONE (09:09)
[2017-07-27] MEDS ORDERED: PROPOFOL IV EMULSION 10 MG/ML 20 ML VIAL IV ONE (09:09)
[2017-07-27] MEDS ORDERED: DEXAMETHASONE SOD INJ 4 MG/ML VIAL ONE (09:09)
[2017-07-27] MEDS ORDERED: FENTANYL CITRATE INJ 50 MCG/1 ML 2 ML VIAL ONE (09:09)
[2017-07-27] MEDS ORDERED: ONDANSETRON INJ 2 MG/ML 2 ML VIAL ONE (09:09)
[2017-07-27] MEDS ORDERED: THROMBIN FOR SOLN 20000 UNIT KIT ONE (09:44)
[2017-07-27] MEDS ORDERED: BACITRACIN 50000 UNIT VIAL ONE (09:44)
[2017-07-27] MEDS ORDERED: ORTHO JOINT ANESTHETIC ONE ×2 (09:44→12:11)
[2017-07-27] MEDS ORDERED: VANCOMYCIN HCL 1000MG/20ML VIAL ONE (09:44)
[2017-07-27] MEDS ORDERED: POVIDONE-IODINE OP SOLN 30 ML BTL ONE (09:44)
[2017-07-27] MEDS ORDERED: DexMEDEtomidine HCL 100 MCG/ML 2ML VIAL IV ONE (09:47)
[2017-07-27] MEDS ORDERED: ROCURONIUM BROMIDE 10 MG/ML 5 ML VIAL IV ONE ×2 (10:38→10:44)
[2017-07-27] MEDS ORDERED: EpHEDrine SULFATE 50MG/5ML SYR ONE (10:38)
[2017-07-27] MEDS ORDERED: SUCCINYLCHOLINE CHLORIDE 20 MG/ML 10 ML VIAL IV ONE (10:38)
[2017-07-27] MEDS ORDERED: PHENYLEPHRINE 100MCG/ML 5ML SYR ONE (10:44)
[2017-07-27] MEDS ORDERED: SODIUM CHLORIDE 0.9% INJ 10 ML VIAL ONE (12:02)
[2017-07-27] MEDS ORDERED: NEOSTIGMINE METHYLSULFATE 5 MG/5 ML SYR ONE (12:02)
[2017-07-27] MEDS ORDERED: GLYCOPYRROLATE INJ 0.2 MG/ML VIAL ONE (12:02)
[2017-07-27] MEDS ORDERED: LARYING-O-JET KIT (LTA) ONE ×2 (12:15)
[2017-07-27] MEDS ORDERED: MAGNESIUM HYDROXIDE SUSP 30 ML UDC PO PRN (13:00)
[2017-07-27] MEDS ORDERED: ALPRAZOLAM 0.5 MG TAB PO PRN (13:00)
[2017-07-27] MEDS ORDERED: ONDANSETRON 8 MG TAB PO PRN (13:00)
[2017-07-27] MEDS ORDERED: ZOLPIDEM TARTRATE 5 MG TAB PO PRN (13:00)
[2017-07-27] MEDS ORDERED: SOD PHOSPHATE/SOD BIPHOSPHATE ENEMA 132 ML BTL PR PRN (13:00)
[2017-07-27] MEDS ORDERED: BISACODYL 10 MG SUPP PR PRN (13:00)
[2017-07-27] MEDS ORDERED: ALUMINUM/MAGNESIUM SUSP 30 ML UDC PO PRN (13:00)
--- NOTE | 2017-07-27 14:26 | Anesthesiology Progress Note ---
Anesthesia Post Op Note Date & Time Jul 27, 2017 at 14:26 Vital Signs Pain Intensity: 6.0 Vital Signs Past 12 Hours Date Time Temp Pulse Resp B/P (MAP) Pulse Ox O2 Delivery O2 Flow Rate FiO2 07/27/17 14:04 95 Nasal Cannula 2.0 07/27/17 13:40 132/89 07/27/17 13:37 72 17 07/27/17 13:37 72 17 94 07/27/17 13:35 142/97 07/27/17 13:32 79 16 07/27/17 13:32 79 16 94 07/27/17 13:31 80 23 94 07/27/17 13:31 79 23 07/27/17 13:30 141/98 07/27/17 13:29 36.6 78 19 145/93 (109) 94 Room Air 2 07/27/17 13:26 79 15 07/27/17 13:26 79 15 94 07/27/17 13:25 145/93 07/27/17 13:21 85 15 07/27/17 13:21 86 15 94 07/27/17 13:20 135/87 07/27/17 13:16 84 25 07/27/17 13:16 83 25 94 07/27/17 13:15 144/95 07/27/17 13:15 144/95 07/27/17 13:13 85 23 94 07/27/17 13:13 85 23 07/27/17 13:13 85 23 94 07/27/17 13:13 85 23 07/27/17 13:10 134/95 07/27/17 13:10 134/95 07/27/17 13:08 83 21 07/27/17 13:08 83 21 94 07/27/17 13:08 83 21 94 07/27/17 13:08 83 21 07/27/17 13:05 135/91 07/27/17 13:05 135/91 07/27/17 13:03 82 16 07/27/17 13:03 82 16 97 07/27/17 13:03 82 16 97 07/27/17 13:03 82 16 07/27/17 13:00 153/107 07/27/17 13:00 153/107 07/27/17 12:58 83 20 97 07/27/17 12:58 83 20 07/27/17 12:58 83 20 97 07/27/17 12:58 83 20 07/27/17 12:55 150/93 07/27/17 12:55 150/93 07/27/17 12:54 158/99 07/27/17 12:54 158/99 07/27/17 12:53 36.5 83 16 158/99 94 Room Air 07/27/17 10:00 58 16 145/98 (114) 100 Oxymask 07/27/17 09:50 55 19 153/97 (115) 100 Oxymask 07/27/17 08:37 36.4 20 162/104 95 Room Air 07/27/17 07:45 36.4 76 20 162/104 95 Room Air Notes Mental Status: alert / awake / arousable, participated in evaluation Pt Amnestic to Procedure: Yes Nausea / Vomiting: adequately controlled Pain: adequately controlled Airway Patency, RR, SpO2: stable & adequate BP & HR: stable & adequate Hydration State: stable & adequate Anesthetic Complications: no major complications apparent
--- NOTE | 2017-07-27 14:34 | DIAGNOSTIC IMAGING REPORT ---
RIGHT SHOULDER MIN 2 VIEWS ROUTINE CLINICAL HISTORY: Post shoulder surgery Right COMPARISON STUDY: None. FINDINGS: There is evidence for right humeral head resurfacing. The hardware appears intact. Skin jordan are in place. There is also distal resection of the right clavicle. No acute fracture or dislocation. IMPRESSION: Status post right humeral head resurfacing. No evidence for hardware complication. Electronically signed by: Vinicio Khan M.D. 07/27/2017 2:33 PM Dictated Date/Time: 07/27/2017 2:32 PM
[2017-07-27] MEDS: D5W AND 1/2NSS + 20MEQ KCL 1,000 ML IV SCH (15:18)
[2017-07-27] MEDS: OXYCODONE/ACETAMINOPHEN 5-325 TAB PO PRN ×2 (15:31→20:02)
--- NOTE | 2017-07-27 17:23 | [facility] Operative Report ---
Operative Report Operative Date Jul 27, 2017. Pre-Operative Diagnosis Right shoulder avascular necrosis and AC joint arthrosis Post-Operative Diagnosis Right shoulder avascular necrosis and AC joint arthrosis Procedure(s) Performed Right shoulder resurfacing, open distal clavicle excision Surgeon Dr. Harkins Fabricator Artificial Breast Surgeon(s) Pancho Box PA-C Estimated Blood Loss 50 ML Findings As above Specimens A: Right distal clavicle Drains none Anesthesia Gen., interscalene Complication(s) None Disposition Recovery Room / PACU Indications 57-year-old male developed necrosis right humeral head. He previously had avascular necrosis the contralateral shoulder. He'll undergo an arthroplasty for the side by another physician. With this shoulder he failed conservative measures including cortisone injection and anti-inflammatories and rehabilitation. He wishes to proceed with a resurfacing versus hemiarthroplasty. Description of Procedure Risks, benefits and alternatives to surgery including, but not limited to, infection DVT, pain, stiffness, need for revision surgery, failure to relieve all symptoms, damage to blood vessels, damage to nerves, risk of anesthesia were discussed with the patient and they wished to proceed. The patient was identified. Laterality was confirmed and marked. The patient received a preoperative antibiotic as well as an interscalene block. They were transferred to the operating room and placed in the supine position and induced into general endotracheal anesthesia per the anesthesia staff. The patient was then safely transferred to a slight beachchair position. The patient was secured in the [employer] positioner. All pressure points were well padded. The shoulder was prepped and draped in the usual sterile manner with ChloraPrep. The arm was secured in the Spider lindsay. I made a longitudinal incision just lateral to the coracoid, sharply incising through the skin and utilizing Bovie electrocautery to achieve hemostasis. I identified the cephalic vein and mobilized it laterally with the deltoid. I then identified and mobilized the conjoined tendon. I identified the long head of the biceps tendon. There was minimal long head biceps tendon tissue proximally was left was excised. I then released the upper border of the subscapularis. The upper border was tagged with FiberWire for later repair. I sized for the humeral head reamer and used the size 47 guide to position my central guide pin. I then reamed down with the size 47. We're still not down into bone at that point we are still to some of the cartilaginous material of the humeral head side downsized to size 44 and this got us into good bone. There is evidence of his avascular necrosis of this. Bone the midportion of the bone and inferiorly was good normal bleeding bone. The avascular bone was was debrided and drilled to establish some bleeding response. I then drilled for the central post and then cut for the fins for the central post. I then impacted the definitive press-fit stem leaving it slightly proud for later impaction. I trialed with a size 44 and liked the fit and then impacted the [employer] Equinox humeral head resurfacing 40 4I 15 mm humeral head. I then impacted this down and finished seating the stem. The shoulder was then reduced wound was thoroughly irrigated. Deep tissues were anesthetized with a mix solution. The deltopectoral interval was closed with interrupted #1 Ethibond suture. The subcutaneous tissue was closed with interrupted 2-0 Vicryl suture. The skin was closed with jordan. I then approached his distal clavicle from superior approach making an incision over the before meals joint I sharply incised the skin and then used Bovie electrocautery to achieve hemostasis. I then incised through the deltoid fascia in line with its fibers and then performed a distal clavicle excision removing a total of 10 mm of bone. The end of the bone was then rasped to smooth. Wound was thoroughly irrigated. The deltoid was closed with interrupted #1 Vicryl suture the subcutaneous tissue with interrupted 2-0 Vicryl suture and the skin with jordan. A sterile dressing was applied. A sling was placed. All needle and sponge counts were correct at the end of the procedure. The patient was transferred to the PACU in stable condition without apparent complication. The PA-C was necessary for assistance with procedure for assistance in positioning, prepping, draping, retraction and closure. I attest to the content of the Intraoperative Record and any orders documented therein. Any exceptions are noted below.
[2017-07-27] MEDS: GABAPENTIN 400 MG CAP PO SCH (17:30)
[2017-07-27] MEDS: FERROUS GLUCONATE 324 MG TAB PO SCH (17:30)
[2017-07-27] MEDS ORDERED: CEFAZOLIN IV 2,000 MG in DEXTROSE 5% 50ML 50 ML IV SCH (20:00)
[2017-07-27] MEDS: DULOXETINE (CYMBALTA) 30 MG CAP PO SCH (20:31)
[2017-07-27] MEDS: RANITIDINE HCL 150 MG TAB PO SCH (20:31)
[2017-07-27] MEDS: CeleBREX 200 MG CAP PO SCH (20:31)
[2017-07-27] MEDS: ARIPIprazole TAB 15 MG TAB PO SCH (20:31)
[2017-07-27] MEDS: DOCUSATE SODIUM 100 MG CAP PO SCH (20:31)
[2017-07-27] MEDS ORDERED: ZOLPIDEM TARTRATE 10 MG TAB PO SCH (21:00)
[2017-07-27] MEDS ORDERED: DIVALPROEX 500 MG EXTENDED RELEASE TAB PO SCH (21:00)
[2017-07-27] MEDS ORDERED: GABAPENTIN 600 MG TAB PO SCH (21:00)
[2017-07-27] MEDS ORDERED: SENNA 8.6 MG TAB PO SCH (21:00)
[2017-07-28] MEDS: D5W AND 1/2NSS + 20MEQ KCL 1,000 ML IV SCH ×2 (00:42→10:41)
[2017-07-28] MEDS: MoRPHine SULFATE 2 MG/ML CARP IV PRN ×2 (00:43→03:48)
[2017-07-28 03:32] VITALS: BP 178/108; PULSE 85; TEMP 36.5; O2SAT 95
[2017-07-28 04:15] VITALS: BP 150/87; O2SAT 54
[2017-07-28 06:00] LABS: HEMATOCRIT 34.2 % (42-52); MEAN CELL VOLUME 96.6 fL (80-100); MEAN CORPUSCULAR HEMOGLOBIN 32.8 pg (25-34); MEAN CORPUSCULAR HGB CONC 33.9 g/dl (32-36); MEAN PLATELET VOLUME 10.7 fL (7.4-10.4); PLATELET COUNT 195 K/uL (130-400); RED BLOOD COUNT 3.54 M/uL (4.7-6.1); WHITE BLOOD COUNT 11.05 K/uL (4.8-10.8)
[2017-07-28 06:07] LABS: PROTHROMBIN TIME (PATIENT) 10.4 SECONDS (9.0-12.0)
[2017-07-28 06:36] LABS: BUN/CREATININE RATIO 11.6 (10-20); CALCIUM 8.4 mg/dl (8.5-10.1); CREATININE 0.81 mg/dl (0.60-1.40); POTASSIUM 4.4 mmol/L (3.5-5.1)
[2017-07-28] MEDS: OXYCODONE/ACETAMINOPHEN 5-325 TAB PO PRN ×2 (07:42→11:37)
[2017-07-28 07:54] VITALS: BP 170/88; PULSE 83; TEMP 36.8; O2SAT 94
[2017-07-28] MEDS: FERROUS GLUCONATE 324 MG TAB PO SCH ×2 (08:56→12:21)
[2017-07-28] MEDS: GABAPENTIN 400 MG CAP PO SCH ×2 (08:57→12:21)
[2017-07-28] MEDS: ARIPIprazole TAB 15 MG TAB PO SCH (08:57)
[2017-07-28] MEDS: CeleBREX 200 MG CAP PO SCH (08:58)
[2017-07-28] MEDS: DOCUSATE SODIUM 100 MG CAP PO SCH (08:58)
[2017-07-28] MEDS: DULOXETINE (CYMBALTA) 30 MG CAP PO SCH (08:58)
[2017-07-28] MEDS ORDERED: CYCLOBENZAPRINE HCL 10 MG TAB PO SCH (09:00)
[2017-07-28] MEDS: RANITIDINE HCL 150 MG TAB PO SCH (09:00)
[2017-07-28] MEDS ORDERED: ASCORBIC ACID 500 MG TAB PO SCH (09:00)
[2017-07-28] MEDS ORDERED: PANTOprazole SOD 40 MG TAB PO SCH (09:00)
[2017-07-28] MEDS ORDERED: MULTIVITAMIN TAB PO SCH (09:00)
[2017-07-28] MEDS ORDERED: AMLODIPINE BESYLATE 5 MG TAB PO SCH (09:00)
[2017-07-28] MEDS ORDERED: DIVALPROEX 500 MG EXTENDED RELEASE TAB PO SCH (09:00)
--- NOTE | 2017-07-28 09:42 | Orthopedic Progress Note ---
Orthopedic Progress Note Date of Service Jul 28, 2017. Subjective Post OP Day: 1 Reports: feeling well, Denies: chest pain, SOB, nausea / vomiting, light headedness Additional Notes: Having some shoulder pain today but tolerating. Hoping to go home today. Objective dressing C/D/I, A&O x3, CMS intact Date Time Temp Pulse Resp B/P (MAP) Pulse Ox O2 Delivery O2 Flow Rate FiO2 07/28/17 07:54 36.8 83 16 170/88 (115) 94 Room Air 07/28/17 04:15 150/87 (108) 54 07/28/17 03:32 36.5 85 20 178/108 (131) 95 Room Air 07/28/17 00:00 Room Air 07/27/17 23:53 36.4 68 18 153/92 (112) 91 Room Air 07/27/17 19:57 36.8 86 16 145/84 (104) 93 Room Air 07/27/17 17:05 36.4 97 16 152/91 (111) 92 Room Air 07/27/17 16:01 36.5 93 16 158/91 (113) 96 Nasal Cannula 2.0 07/27/17 16:00 Nasal Cannula 2.0 07/27/17 15:45 98 Nasal Cannula 2.0 07/27/17 15:05 96 16 166/86 (112) 98 2.0 07/27/17 14:33 16 160/93 (115) 94 2.0 07/27/17 14:04 95 Nasal Cannula 2.0 07/27/17 14:00 Nasal Cannula 2.0 95 07/27/17 13:40 132/89 07/27/17 13:37 72 17 07/27/17 13:37 72 17 94 07/27/17 13:35 142/97 07/27/17 13:32 79 16 07/27/17 13:32 79 16 94 07/27/17 13:31 80 23 94 07/27/17 13:31 79 23 07/27/17 13:30 141/98 07/27/17 13:29 36.6 78 19 145/93 (109) 94 Room Air 2 07/27/17 13:26 79 15 07/27/17 13:26 79 15 94 07/27/17 13:25 145/93 07/27/17 13:21 85 15 07/27/17 13:21 86 15 94 07/27/17 13:20 135/87 07/27/17 13:16 84 25 07/27/17 13:16 83 25 94 07/27/17 13:15 144/95 07/27/17 13:15 144/95 07/27/17 13:13 85 23 94 07/27/17 13:13 85 23 07/27/17 13:13 85 23 94 07/27/17 13:13 85 23 07/27/17 13:10 134/95 07/27/17 13:10 134/95 07/27/17 13:08 83 21 07/27/17 13:08 83 21 94 07/27/17 13:08 83 21 94 07/27/17 13:08 83 21 07/27/17 13:05 135/91 07/27/17 13:05 135/91 07/27/17 13:03 82 16 07/27/17 13:03 82 16 97 07/27/17 13:03 82 16 97 07/27/17 13:03 82 16 07/27/17 13:00 153/107 07/27/17 13:00 153/107 07/27/17 12:58 83 20 97 07/27/17 12:58 83 20 07/27/17 12:58 83 20 97 07/27/17 12:58 83 20 07/27/17 12:55 150/93 07/27/17 12:55 150/93 07/27/17 12:54 158/99 07/27/17 12:54 158/99 07/27/17 12:53 36.5 83 16 158/99 94 Room Air 07/27/17 10:00 58 16 145/98 (114) 100 Oxymask 12 07/27/17 09:50 55 19 153/97 (115) 100 Oxymask 12 Laboratory Results 24 Hours: Test 07/28/17 05:30 Hematocrit 34.2 % Hemoglobin 11.6 g/dL Prothromb Time International Ratio 1.0 Prothrombin Time 10.4 SECONDS Assessment & Plan Assessment: POD 1 s/p Right Shoulder Hemiarthroplasty Plan: PT/OT today Possible dc to home today BP elevation may be due to pain control. follow Inhouse Planning Pain Management: Percocet, Morphine DVT Prophylaxis: TEDs, SCDs Discharge Planning Discharge Planning: home with oppt
[2017-07-28] MEDS ORDERED: RXC5 PO (09:47)
[2017-07-28] MEDS ORDERED: CELE100C PO (09:47)
[2017-07-28] MEDS ORDERED: ACET-1256 PO (09:47)
--- NOTE | 2017-07-28 09:51 | Discharge Instructions ---
Discharge Instructions Date of Service Jul 28, 2017. Admission Reason for Admission: Right Shoulder Ac Joint Arthritis, Osteonecrosis O Discharge Discharge Diagnosis / Problem: Right Shoulder AC Joint Arthritis/ Osteonecrosis Discharge Goals Goal(s): Decrease discomfort, Improve function Activity Recommendations Activity Limitations: per Instructions/Follow-up section Weightbearing Status: Right non-weightbearing (right shoulder) . Instructions / Follow-Up Instructions / Follow-Up ACTIVITY RECOMMENDATIONS: SELF CARE INSTRUCTIONS AFTER TOTAL SHOULDER ARTHROPLASTY A. You may do daily exercises as taught in physical therapy while in hospital. No lifting with the operative arm. Please schedule your outpatient physical therapy appointment to begin within 2-3 days after leaving the hospital. Specific restrictions will be written on your physical therapy prescription that is provided to you. B. You are to wear your sling/immobilizer at all times EXCEPT when performing your daily exercises, participating in physical therapy and for hygiene purposes. C. You may perform dry, daily dressing changes. Please keep your incision covered. You may shower 48 hours after surgery. Do not apply soap or any ointment/ lotions directly over incision. Do not soak incision in bath tub/swimming pool. D. You may use ice as needed to operative shoulder. SPECIAL CARE INSTRUCTIONS: MEDICATION INSTRUCTIONS: *It is recommended you take Aspirin 325mg daily for four weeks post-op. VERY IMPORTANT TO READ AND REVIEW A. There are a few signs you need to watch for after you are home. Call [facility] at [phone] if you experience any of the followin. Increased severe shoulder pain. Some pain is expected especially when you exercise. 2. Increased swelling in you shoulder or arm; pain or swelling in either upper extremity. 3. Any fluid drainage from the incision. 4. Shortness of breath or chest pain. B. Please call [facility] at [phone] if you have any questions or concerns about your operation or recovery. C. Call your physician if: 1. Temperature is greater than 101 degrees (F). 2. Pain is not relieved by prescribed pain medications. 3. Increase drainage or redness from incision. 4. Unanswered questions or concerns. FOLLOW UP VISIT: Please call [facility] at [phone] to schedule a follow up appointment with Dr. Harkins or his PA in 12-14 days from your surgery date. Current Hospital Diet Patient's current hospital diet: Regular Diet Discharge Diet Recommended Diet: Regular Diet Procedures Procedures Performed: Right shoulder resurfacing, open distal clavicle excision Pending Studies Studies pending at discharge: no Laboratory Results Hemoglobin A1c Test 07/12/17 11:07 Range/Units Estimated Average Glucose 117 mg/dl Hemoglobin A1c 5.7 H 4.5-5.6 % Medical Emergencies . Who to Call and When: Medical Emergencies: If at any time you feel your situation is an emergency, please call 911 immediately. . Non-Emergent Contact Non-Emergency issues call your: Surgeon Call Non-Emergent contact if: temperature is above 101.5, your pain is not controlled, your pain is worsening, wound has increased drainage, wound has increased redness . "Provider Documentation" section prepared by Alex Santizo. . VTE Core Measure Inpt VTE Proph given/why not?: Kunal Brown, SCD's [place] Drug Monitoring Program Search Results: patient reviewed within database, no issues identified
[2017-07-28] MEDS ORDERED: ASPEC325 PO (09:53)
[2017-07-28 10:31] VITALS: BP 170/88; PULSE 83; TEMP 36.8; O2SAT 94
[2017-07-28 11:09] VITALS: BP 153/90; TEMP 36.4; O2SAT 95
--- NOTE | 2017-07-31 09:05 | Discharge Summary ---
Orthopedic Discharge Summary Admission Date/Reason Jul 27, 2017 at 09:00 Right Shoulder Ac Joint Arthritis, Osteonecrosis O. Discharge Date/Disposition Jul 28, 2017 Home Diagnosis Principal Diagnosis: S/P right shoulder hemiarthroplasty and Open DCE Medication Reconciliation as per discharge instructions Admission Physical Exam As per Admitting History & Physical. Hospital Course POD #1 patient was feeling well. He did have some shoulder pain but it was tolerable. His plan for discharge was to go home with self care later that day after PT/OT. Discharge Instructions Please refer to the electronic Patient Visit Report (Discharge Instructions) for additional information.
== END 2017-07-28 15:15 | disposition home or self-care (01) | DRG 483 ==
LOC: C.ACU 07:17 → C.3E 09:00 → UNDOADMIN 13:01 → C.3E 13:01 → ENRESERV 13:19
PROVIDERS: ADMIT Orthopaedic Surgery; ATTEND Orthopaedic Surgery
PROC: 0RRJ0J6 Replacement of Right Shoulder Joint with Synthetic Substitute, Humeral Surface, Open Approach (ICD-10-PCS; principal; 2017-07-27 09:45)
DX: M19.011 Primary osteoarthritis, right shoulder (principal); M87.011 Idiopathic aseptic necrosis of right shoulder; Z79.899 Other long term (current) drug therapy